=== PATIENT | female | born 1935 | race Caucasian/White ===

== ENCOUNTER → 2017-03-27 | Outpatient (CLI) | payer MEDICARE ==
--- NOTE | 2017-04-01 13:58 | MM ---
Reason for exam: screening (asymptomatic). Last mammogram was performed 1 year and 1 month ago. History: Patient is postmenopausal. Physical Findings: A clinical breast exam by your physician is recommended on an annual basis and results should be correlated with mammographic findings. MG 3D Screening Mammo W/Cad Bilateral CC and MLO view(s) were taken. Prior study comparison: March 07, 2016, bilateral MG screening mammo w CAD. March 02, 2015, bilateral MG screening mammo w CAD. December 09, 2013, bilateral digital screening mammo w/CAD. The breast tissue is heterogeneously dense. This may lower the sensitivity of mammography. Finding: There are typically benign vascular, round calcifications in both breasts. There is no discrete abnormality. ASSESSMENT: Benign, BI-RAD 2 RECOMMENDATION: Routine screening mammogram of both breasts in 1 year.
== END | disposition home or self-care (01) ==
LOC: RADMAMWWP 11:25
PROVIDERS: ATTEND Internal Medicine Geriatric Medicine
DX: Z12.31 Encounter for screening mammogram for malignant neoplasm of breast (principal)
CPT/HCPCS: 77063; G0202

== ENCOUNTER → 2018-04-06 | Outpatient (CLI) | payer MEDICARE ==
--- NOTE | 2018-04-06 16:14 | BD ---
EXAMINATION TYPE: Axial Bone Density DATE OF EXAM: 04/06/2018 COMPARISON: NONE CLINICAL HISTORY: Postmenopausal female. Osteoporosis screening. Height: 63 Weight: 138.0 FRAX RISK QUESTIONS: Alcohol (3 or more units per day): no Family History (Parent hip fracture): no Glucocorticoids (More than 3mos): no (Ex: prednisone, prednisolone, methylprednisolone, dexamethasone, and hydrocortisone). History of Fracture in Adulthood: no Secondary Osteoporosis: 1. Type 1 Diabetes: no 2. Hyperthyroidism: no 3. Menopause before 45: no 4. Malnutrition: no 5. Chronic liver disease: no Rheumatoid Arthritis: no Current Tobacco Use: no RISK FACTORS HISTORY OF: Active: yes Diet low in dairy products/other sources of calcium: yes Postmenopausal woman: age 55 Lost more than 2 inches in height since high school: unsure Frequent falls: no MEDICATIONS: lisinopril, hydralazine, lovastatin, aspirin, vitamins Additional History: EXAM MEASUREMENTS: Bone mineral densitometry was performed using the Panv[employer] System. Bone mineral density as measured about the Lumbar spine is: ----- L1-L4(G/cm2): 1.314 T Score Values are as follows: ----- L2: -0.1 ----- L3: 2.4 ----- L4: 2.8 ----- L1-L4: 1.1 Bone mineral density has: increased 1.1 % since study of: 03.02.2015 Bone mineral density about the R hip (g/cm2): 0.830 Bone mineral density about the L hip (g/cm2): 0.885 T Score values are as follows: -----R Neck: -1.5 -----L Neck: -1.1 -----R Total: -0.2 -----L Total: 0.1 Bone mineral density has: decreased -0.5 % since study of: 03.02.2015 IMPRESSION: Osteopenia (T Score between -2.5 and -1). There is slightly increased risk of fracture and the patient may be considered for treatment. Re-Screen 2-5 years. NOTE: T-SCORE=SD OF THE YOUNG ADULT MEAN.
--- NOTE | 2018-04-07 14:38 | MM ---
Reason for exam: screening (asymptomatic). Last mammogram was performed 1 year ago. History: Patient is postmenopausal. Physical Findings: A clinical breast exam by your physician is recommended on an annual basis and results should be correlated with mammographic findings. MG 3D Screening Mammo W/Cad Bilateral CC and MLO view(s) were taken. Prior study comparison: March 27, 2017, bilateral MG 3d screening mammo w/cad. March 07, 2016, bilateral MG screening mammo w CAD. Finding: There are typically benign vascular calcifications in both breasts. No significant changes in finding since March 27, 2017 and March 07, 2016. ASSESSMENT: Benign, BI-RAD 2 RECOMMENDATION: Routine screening mammogram of both breasts in 1 year.
== END | disposition home or self-care (01) ==
LOC: RADMAMWWP 13:39
PROVIDERS: ATTEND Internal Medicine Geriatric Medicine
DX: Z12.31 Encounter for screening mammogram for malignant neoplasm of breast (principal); M81.0 Age-related osteoporosis without current pathological fracture; M85.80 Other specified disorders of bone density and structure, unspecified site
CPT/HCPCS: 77063; 77067; 77080

== ENCOUNTER → 2020-08-07 | Outpatient (CLI) | payer MEDICARE ==
--- NOTE | 2020-08-08 12:20 | MM ---
Reason for exam: screening (asymptomatic). Last mammogram was performed 1 year and 3 months ago. History: Patient is postmenopausal. Physical Findings: A clinical breast exam by your physician is recommended on an annual basis and results should be correlated with mammographic findings. MG 3D Screening Mammo W/Cad Bilateral CC and MLO view(s) were taken. Prior study comparison: April 22, 2019, bilateral MG screening mammo w CAD. April 06, 2018, bilateral MG 3d screening mammo w/cad. The breast tissue is heterogeneously dense. This may lower the sensitivity of mammography. There are benign appearing round, vascular calcifications bilaterally. There is no discrete abnormality. ASSESSMENT: Benign, BI-RAD 2 RECOMMENDATION: Routine screening mammogram of both breasts in 1 year.
== END | disposition home or self-care (01) ==
LOC: RADMAMWWP 11:11
PROVIDERS: ATTEND Internal Medicine Geriatric Medicine
DX: Z12.31 Encounter for screening mammogram for malignant neoplasm of breast (principal)
CPT/HCPCS: 77063; 77067

== ENCOUNTER 2022-07-09 10:15 | Emergency (ER) | payer MEDICARE ==
[2022-07-09 10:26] VITALS: BP 179/97; RESP 16; TEMP 97.7
[2022-07-09] MEDS ORDERED: SODIUM CHLORIDE 0.9% 500 ML 500 ML IV STA (10:31)
--- NOTE | 2022-07-09 10:36 | ED ---
Weakness HPI - General Chief complaint: Weakness Stated complaint: weakness Time Seen by Provider: 07/09/22 10:27 Source: patient, EMS, RN notes reviewed, old records reviewed Mode of arrival: EMS Limitations: no limitations - History of Present Illness Initial comments: This is an 87-year-old female that is alert to person, presents to the emergency room with complaints of generalized weakness. Patient does have a history of dementia and was diagnosed with coronavirus last week. She denies any nausea vomiting or abdominal pain. States did have a bowel movement today. She denies any chest pain or difficulty in breathing. She does state that she has a productive cough. Denies any fevers. MD Complaint: generalized weakness Location: generalized Severity scale (1-10): 0 Associated Symptoms: denies other symptoms - Related Data Home Medications Medication Instructions Recorded Confirmed Aspirin EC [Ecotrin Low Dose] 81 mg PO HS 07/09/22 07/09/22 Calcium Carbonate/Vitamin D3 1 tab PO BID 07/09/22 07/09/22 [Caltrate 600 Plus D3 20 Mcg (800 Iu)] DULoxetine HCL [Cymbalta] 30 mg PO DAILY 07/09/22 07/09/22 Donepezil [Aricept] 10 mg PO BID 07/09/22 07/09/22 Folic Acid 1 mg PO HS 07/09/22 07/09/22 Lovastatin [Mevacor] 40 mg PO HS 07/09/22 07/09/22 Memantine [Namenda] 10 mg PO HS 07/09/22 07/09/22 Multivitamins, Thera [Multivitamin 1 tab PO DAILY 07/09/22 07/09/22 (formulary)] Ubidecarenone [Co Q-10] 300 mg PO HS 07/09/22 07/09/22 lisinopriL [Zestril] 20 mg PO BID 07/09/22 07/09/22 Allergies Allergy/AdvReac Type Severity Reaction Status Date / Time No Known Allergies Allergy Verified 07/09/22 10:34 Review of Systems ROS Statement: Those systems with pertinent positive or pertinent negative responses have been documented in the HPI. ROS Other: All systems not noted in ROS Statement are negative. General Exam Limitations: no limitations General appearance: alert, in no apparent distress Head exam: Present: atraumatic Eye exam: Present: normal appearance. Absent: scleral icterus, conjunctival injection, periorbital swelling ENT exam: Present: mucous membranes dry. Absent: other Neck exam: Present: full ROM Respiratory exam: Present: decreased breath sounds. Absent: respiratory distress, wheezes, rales, rhonchi, stridor, chest wall tenderness, accessory muscle use Cardiovascular Exam: Present: regular rate GI/Abdominal exam: Present: soft. Absent: distended, tenderness, guarding, rebound, rigid Extremities exam: Present: full ROM, normal capillary refill. Absent: tenderness, pedal edema, joint swelling, calf tenderness Back exam: Absent: tenderness, CVA tenderness (R), CVA tenderness (L), paraspinal tenderness, vertebral tenderness, rash noted Neurological exam: Present: alert Psychiatric exam: Present: normal affect, normal mood Skin exam: Present: warm, dry, normal color. 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 Hemoglobin and hematocrit are stable. Electrolytes are unremarkable. EKG shows sinus rhythm with no acute changes. Troponin is negative. Urinalysis is negative. VSS Patient's symptoms are likely related to coronavirus. She was encouraged to increase her fluid intake, take vitamin C, vitamin D and zinc daily. Return to the emergency room with any concerning symptoms. Case discussed with Dr. Nuno. - Lab Data Result diagrams: 07/09/22 11:18 07/09/22 11:18 Lab Results 07/09/22 07/09/22 07/09/22 Range/Units 11:18 11:18 11:18 WBC 7.2 (3.8-10.6) k/uL RBC 4.76 (3.80-5.40) m/uL Hgb 13.7 (11.4-16.0) gm/dL Hct 42.4 (34.0-46.0) % MCV 89.1 (80.0-100.0) fL MCH 28.7 (25.0-35.0) pg MCHC 32.2 (31.0-37.0) g/dL RDW 13.5 (11.5-15.5) % Plt Count 249 (150-450) k/uL MPV 7.2 Neutrophils % 72 % Lymphocytes % 18 % Monocytes % 6 % Eosinophils % 1 % Basophils % 1 % Neutrophils # 5.2 (1.3-7.7) k/uL Lymphocytes # 1.3 (1.0-4.8) k/uL Monocytes # 0.5 (0-1.0) k/uL Eosinophils # 0.1 (0-0.7) k/uL Basophils # 0.0 (0-0.2) k/uL PT 10.1 (9.0-12.0) sec INR 0.9 (<1.2) APTT 28.9 (22.0-30.0) sec Sodium 138 (137-145) mmol/L Potassium 4.3 (3.5-5.1) mmol/L Chloride 103 (98-107) mmol/L Carbon Dioxide 28 (22-30) mmol/L Anion Gap 7 mmol/L BUN 16 (7-17) mg/dL Creatinine 1.04 (0.52-1.04) mg/dL Est GFR (CKD-EPI)AfAm 56 (>60 ml/min/1.73 sqM) Est GFR (CKD-EPI)NonAf 49 (>60 ml/min/1.73 sqM) Glucose 100 H (74-99) mg/dL Plasma Lactic Acid Sukhjinder (0.7-2.0) mmol/L Calcium 9.1 (8.4-10.2) mg/dL Magnesium 1.8 (1.6-2.3) mg/dL Total Bilirubin 0.3 (0.2-1.3) mg/dL AST 30 (14-36) U/L ALT 15 (4-34) U/L Alkaline Phosphatase 100 (38-126) U/L Troponin I (0.000-0.034) ng/mL Total Protein 5.8 L (6.3-8.2) g/dL Albumin 3.3 L (3.5-5.0) g/dL Urine Color Urine Appearance (Clear) Urine pH (5.0-8.0) Ur Specific [place] (1.001-1.035) Urine Protein (Negative) Urine Glucose (UA) (Negative) Urine Ketones (Negative) Urine Blood (Negative) Urine Nitrite (Negative) Urine Bilirubin (Negative) Urine Urobilinogen (<2.0) mg/dL Ur Leukocyte Esterase (Negative) Coronavirus (PCR) (Not Detectd) 07/09/22 07/09/22 07/09/22 Range/Units 11:18 11:18 11:18 WBC (3.8-10.6) k/uL RBC (3.80-5.40) m/uL Hgb (11.4-16.0) gm/dL Hct (34.0-46.0) % MCV (80.0-100.0) fL MCH (25.0-35.0) pg MCHC (31.0-37.0) g/dL RDW (11.5-15.5) % Plt Count (150-450) k/uL MPV Neutrophils % % Lymphocytes % % Monocytes % % Eosinophils % % Basophils % % Neutrophils # (1.3-7.7) k/uL Lymphocytes # (1.0-4.8) k/uL Monocytes # (0-1.0) k/uL Eosinophils # (0-0.7) k/uL Basophils # (0-0.2) k/uL PT (9.0-12.0) sec INR (<1.2) APTT (22.0-30.0) sec Sodium (137-145) mmol/L Potassium (3.5-5.1) mmol/L Chloride (98-107) mmol/L Carbon Dioxide (22-30) mmol/L Anion Gap mmol/L BUN (7-17) mg/dL Creatinine (0.52-1.04) mg/dL Est GFR (CKD-EPI)AfAm (>60 ml/min/1.73 sqM) Est GFR (CKD-EPI)NonAf (>60 ml/min/1.73 sqM) Glucose (74-99) mg/dL Plasma Lactic Acid Sukhjinder 0.9 (0.7-2.0) mmol/L Calcium (8.4-10.2) mg/dL Magnesium (1.6-2.3) mg/dL Total Bilirubin (0.2-1.3) mg/dL AST (14-36) U/L ALT (4-34) U/L Alkaline Phosphatase (38-126) U/L Troponin I 0.013 (0.000-0.034) ng/mL Total Protein (6.3-8.2) g/dL Albumin (3.5-5.0) g/dL Urine Color Light Yellow Urine Appearance Clear (Clear) Urine pH 7.0 (5.0-8.0) Ur Specific [place] 1.007 (1.001-1.035) Urine Protein Negative (Negative) Urine Glucose (UA) Negative (Negative) Urine Ketones Negative (Negative) Urine Blood Negative (Negative) Urine Nitrite Negative (Negative) Urine Bilirubin Negative (Negative) Urine Urobilinogen <2.0 (<2.0) mg/dL Ur Leukocyte Esterase Negative (Negative) Coronavirus (PCR) (Not Detectd) 07/09/22 Range/Units 11:18 WBC (3.8-10.6) k/uL RBC (3.80-5.40) m/uL Hgb (11.4-16.0) gm/dL Hct (34.0-46.0) % MCV (80.0-100.0) fL MCH (25.0-35.0) pg MCHC (31.0-37.0) g/dL RDW (11.5-15.5) % Plt Count (150-450) k/uL MPV Neutrophils % % Lymphocytes % % Monocytes % % Eosinophils % % Basophils % % Neutrophils # (1.3-7.7) k/uL Lymphocytes # (1.0-4.8) k/uL Monocytes # (0-1.0) k/uL Eosinophils # (0-0.7) k/uL Basophils # (0-0.2) k/uL PT (9.0-12.0) sec INR (<1.2) APTT (22.0-30.0) sec Sodium (137-145) mmol/L Potassium (3.5-5.1) mmol/L Chloride (98-107) mmol/L Carbon Dioxide (22-30) mmol/L Anion Gap mmol/L BUN (7-17) mg/dL Creatinine (0.52-1.04) mg/dL Est GFR (CKD-EPI)AfAm (>60 ml/min/1.73 sqM) Est GFR (CKD-EPI)NonAf (>60 ml/min/1.73 sqM) Glucose (74-99) mg/dL Plasma Lactic Acid Sukhjinder (0.7-2.0) mmol/L Calcium (8.4-10.2) mg/dL Magnesium (1.6-2.3) mg/dL Total Bilirubin (0.2-1.3) mg/dL AST (14-36) U/L ALT (4-34) U/L Alkaline Phosphatase (38-126) U/L Troponin I (0.000-0.034) ng/mL Total Protein (6.3-8.2) g/dL Albumin (3.5-5.0) g/dL Urine Color Urine Appearance (Clear) Urine pH (5.0-8.0) Ur Specific [place] (1.001-1.035) Urine Protein (Negative) Urine Glucose (UA) (Negative) Urine Ketones (Negative) Urine Blood (Negative) Urine Nitrite (Negative) Urine Bilirubin (Negative) Urine Urobilinogen (<2.0) mg/dL Ur Leukocyte Esterase (Negative) Coronavirus (PCR) Detected A (Not Detectd) Disposition Clinical Impression: Weakness, COVID-19 Disposition: HOME SELF-CARE Condition: Good Instructions (If sedation given, give patient instructions): COVID-19 (Coronavirus Disease 2019) (ED), Weakness (ED) Additional Instructions: Increase your fluid intake. Take vitamin C, vitamin D and zinc. Return to the emergency room with worsening or concerning symptoms. Is patient prescribed a controlled substance at d/c from ED?: No Referrals: Nadir Gomez MD [Primary Care Provider] - 1-2 days
[2022-07-09 11:28] LABS: Basophils % (A) 1 %; Eosinophils # (A) 0.1 k/uL (0-0.7); Eosinophils % (A) 1 %; HCT 42.4 % (34.0-46.0); HGB 13.7 gm/dL (11.4-16.0); Lymphocytes # (A) 1.3 k/uL (1.0-4.8); Lymphocytes % (A) 18 %; MCH 28.7 pg (25.0-35.0); MCHC 32.2 g/dL (31.0-37.0); MCV 89.1 fL (80.0-100.0); Mean Platelet Volume 7.2; Monocytes # (A) 0.5 k/uL (0-1.0); Monocytes % (A) 6 %; Neutrophils # (A) 5.2 k/uL (1.3-7.7); Neutrophils % (A) 72 %; Platelet Count 249 k/uL (150-450); RBC 4.76 m/uL (3.80-5.40); RDW 13.5 % (11.5-15.5); WBC 7.2 k/uL (3.8-10.6)
[2022-07-09 11:31] VITALS: PULSE 57
[2022-07-09 11:42] LABS: Albumin 3.3 g/dL (3.5-5.0); Calcium 9.1 mg/dL (8.4-10.2); Magnesium 1.8 mg/dL (1.6-2.3); Potassium 4.3 mmol/L (3.5-5.1); Total Bilirubin 0.3 mg/dL (0.2-1.3); Total Protein 5.8 g/dL (6.3-8.2)
[2022-07-09 11:45] LABS: INR 0.9 (<1.2); Partial Thromboplastin Time 28.9 sec (22.0-30.0); Prothrombin Time 10.1 sec (9.0-12.0)
--- NOTE | 2022-07-09 11:59 | XR ---
EXAMINATION TYPE: XR chest 2V DATE OF EXAM: 07/09/2022 COMPARISON: NONE HISTORY: Weakness. TECHNIQUE: Frontal and lateral views of the chest are obtained. FINDINGS: There is no suspicious focal air space opacity, pleural effusion, or pneumothorax seen. T he cardiac silhouette size is within normal limits with atherosclerotic change in the thoracic aorta. The osseous structures are demineralized. IMPRESSION: No acute pulmonary process.
[2022-07-09 12:50] LABS: Appearance,Urine Clear (Clear); Bilirubin,Urine Negative (Negative); Blood,Urine Negative (Negative); Color,Urine Light Yellow; Glucose,Urine (UA) Negative (Negative); Ketones,Urine Negative (Negative); Leukocyte Esterase,Urine Negative (Negative); Nitrite,Urine Negative (Negative); Protein,Urine Negative (Negative); Specific Gravity,Urine 1.007 (1.001-1.035); Urobilinogen,Urine <2.0 mg/dL (<2.0)
== END 2022-07-09 19:29 | disposition home or self-care (01) ==
LOC: EC 10:15
DX: U07.1 COVID-19 (principal)
CPT/HCPCS: 36415; 71046; 80053; 81003; 83605; 83735; 84484; 85025; 85610; 85730; 87635; 99285

== ENCOUNTER 2023-05-10 08:06 | Emergency (ER) | payer MEDICARE ==
[2023-05-10 08:14] VITALS: PULSE 60; TEMP 98
--- NOTE | 2023-05-10 08:36 | ED ---
General Adult HPI - General Chief complaint: Fall Stated complaint: Fall Time Seen by Provider: 05/10/23 08:20 Source: patient, family (daughter), RN notes reviewed, old records reviewed Mode of arrival: ambulatory Limitations: no limitations - History of Present Illness Initial comments: 88-year-old female, alert and oriented presents with her daughter after she states that she tripped outside falling onto her right side at 4:00 yesterday afternoon. Called her daughter this morning with increased right sided rib and shoulder pain. Denies any other injuries. Did not hit her head or loose consciousness. Daughter states that she does have mild dementia, but does live alone. Also has a history of hypertension and states did take her blood pres sure medicine today. Daughter states that she also takes hydralazine as needed for elevated blood pressure but does not know the dose. -: hour(s) (16) Location: right (ribs / shoulder) Severity scale (1-10): 8 Quality: aching, constant Improves with: immobilization Worsens with: other (palpation) Associated Symptoms: denies other symptoms Treatments Prior to Arrival: other (tylenol 0800) - Related Data Home Medications Medication Instructions Recorded Confirmed Aspirin EC [Ecotrin Low Dose] 81 mg PO HS 07/09/22 05/10/23 Calcium Carbonate/Vitamin D3 1 tab PO BID 07/09/22 05/10/23 [Caltrate 600 Plus D3 20 Mcg (800 Iu)] DULoxetine HCL [Cymbalta] 30 mg PO DAILY 07/09/22 05/10/23 Donepezil [Aricept] 10 mg PO BID 07/09/22 05/10/23 Lovastatin [Mevacor] 40 mg PO HS 07/09/22 05/10/23 Memantine [Namenda] 10 mg PO HS 07/09/22 05/10/23 Multivitamins, Thera [Multivitamin 1 tab PO DAILY 07/09/22 05/10/23 (formulary)] Ubidecarenone [Co Q-10] 300 mg PO HS 07/09/22 05/10/23 lisinopriL [Zestril] 20 mg PO BID 07/09/22 05/10/23 hydrALAZINE HCL [Apresoline] 25 mg PO TID PRN 05/10/23 05/10/23 Allergies Allergy/AdvReac Type Severity Reaction Status Date / Time No Known Allergies Allergy Verified 05/10/23 09:11 Review of Systems ROS Statement: Those systems with pertinent positive or pertinent negative responses have been documented in the HPI. ROS Other: All systems not noted in ROS Statement are negative. Past Medical History Past Medical History: Dementia, Hypertension History of Any Multi-Drug Resistant Organisms: None Reported Past Surgical History: Tubal Ligation Additional Past Surgical History / Comment(s): left retinal detachment Past Psychological History: No Psychological Hx Reported Smoking Status: Former smoker Past Alcohol Use History: None Reported Past Drug Use History: None Reported General Exam Limitations: no limitations General appearance: alert, in no apparent distress Head exam: Present: atraumatic, normocephalic, normal inspection Eye exam: Present: normal appearance. Absent: scleral icterus, conjunctival injection, periorbital swelling Neck exam: Present: full ROM. Absent: tenderness, meningismus Respiratory exam: Absent: respiratory distress, accessory muscle use Cardiovascular Exam: Present: regular rate GI/Abdominal exam: Present: soft Extremities exam: Present: full ROM, normal capillary refill. Absent: tenderness, pedal edema, joint swelling, calf tenderness Right Shoulder Exam: Present: tenderness, tenderness over AC joint. Absent: swelling, abrasion, laceration, ecchymosis, deformity, crepitus, dislocation, erythema Upper Arm exam: Present: full ROM. Absent: tenderness Elbow exam: Present: full ROM. Absent: tenderness Forearm Wrist exam: Present: full ROM. Absent: tenderness Hand Wrist exam: Present: full ROM. Absent: tenderness Neurosensory exam: Present: radial nerve intact, ulnar nerve intact, median nerve intact Vascular: Present: normal capillary refill. Absent: vascular compromise Back exam: Present: other (right sided lateral rib pain, no bruising or errythema, no abrasions). Absent: tenderness, CVA tenderness (R), CVA tenderness (L) Neurological exam: Present: alert, other (shuffling) Psychiatric exam: Present: normal affect, normal mood Skin exam: Present: warm, dry, normal color. Absent: cyanosis, diaphoretic, petechiae, pallor Course Vital Signs 05/10/23 05/10/23 08:09 09:05 Temperature 98 F Pulse Rate 60 Respiratory 18 16 Rate Blood Pressure 208/83 198/90 O2 Sat by Pulse 98 98 Oximetry Medical Decision Making - Medical Decision Making Was pt. sent in by a medical professional or institution (, PA, HOUSING QUALITY STANDARD INSPECTOR, urgent care, hospital, or [facility]...) When possible be specific @ -No Did you speak to anyone other than the patient for history (EMS, parent, family, police, friend...)? What history was obtained from this source @ -Daughter gave medical history Did you review nursing and triage notes (agree or disagree)? Why? @ -I reviewed and agree with nursing and triage notes Were old charts reviewed (outside hosp., previous admission, EMS record, old EKG, old radiological studies, urgent care reports/EKG's, [facility] records)? Report findings @ -No old charts were reviewed Differential Diagnosis (chest pain, altered mental status, abdominal pain women, abdominal pain men, vaginal bleeding, weakness, fever, dyspnea, syncope, headache, dizziness, GI bleed, back pain, seizure, CVA, palpatations, mental health, musculoskeletal)? @ -Rib fracture, clavicle fracture, humeral fracture, dislocation EKG interpreted by me (3pts min.). @ -n/a X-rays interpreted by me (1pt min.). @ -yes X-ray of chest and right ribs interpreted by me show no evidence of fracture, no focal consolidation. X-ray of the right shoulder interpreted by me shows no evidence of fracture or dislocation. CT interpreted by me (1pt min.). @ -None done U/S interpreted by me (1pt. min.). @ -None done What testing was considered but not performed or refused? (CT, X-rays, U/S, labs)? Why? @ -None What meds were considered but not given or refused? Why? @ -None Did you discuss the management of the patient with other professionals (ward alfordfesstameka i.e. , PA, HOUSING QUALITY STANDARD INSPECTOR, lab, RT, psych nurse, social work coordinator, yard manager, teacher, classification officer, case management coordinator)? Give summary @ -No Was smoking cessation discussed for >3mins.? @ -No Was critical care preformed (if so, how long)? @ -No Were there social determinants of health that impacted care today? How? (Homelessness, low income, unemployed, alcoholism, drug addiction, transportation, low edu. Level, literacy, decrease access to med. care, penitentiary, rehab)? @ -No Was there de-escalation of care discussed even if they declined (Discuss DNR or withdrawal of care, Hospice)? DNR status @ -No What co-morbidities impacted this encounter? (DM, HTN, Smoking, COPD, CAD, Cancer, CVA, ARF, Chemo, Hep., AIDS, mental health diagnosis, sleep apnea, morbid obesity)? @ -Hypertension and dementia Was patient admitted / discharged? Hospital course, mention meds given and route, prescriptions, significant lab abnormalities, going to OR and other pertinent info. @ -Discharged 88-year-old female, alert and oriented presents with her daughter after she states that she tripped outside falling onto her right side at 4:00 yesterday afternoon. Called her daughter this morning with increased right sided rib and shoulder pain. Denies any other injuries. Did not hit her head or loose consciousness. Daughter states that she does have mild dementia, but does live alone. Also has a history of hypertension and states did take her blood pressure medicine today. Daughter states that she also takes hydralazine as needed for elevated blood pressure but does not know the dose. On physical exam patient is able to elevate her right arm over her head, negative Apley scratch test. Full range of motion of the right elbow wrist and hand. Pain with palpation over the right lateral ribs. No evidence of bruising, abrasions or erythema. Patient denies any difficulty breathing. She states that she did not hit her head. Atraumatic. No neck pain. Patient offered pain medication and declined, daughter states did give her Tylenol just prior to arrival X-ray of chest and right ribs show no evidence of fracture, no focal consolidation. Radiologist interpretation no acute osseous pathology. X-ray of the right shoulder interpreted by me shows no evidence of fracture or dislocation. Radiologist interpretation no acute osseous pathology, type I AC j oint injury, mild degenerative changes of the right shoulder. Patient was given a sling to be used as needed for right shoulder pain. Instructed to follow-up with Dr. Mcneill her primary care doctor this week. Take her hydralazine when she gets home today for elevated blood pressure and discuss elevated blood pressure with her primary care doctor. Patient daughter agreeable to this plan of care. Case discussed with Dr. Nuno. Undiagnosed new problem with uncertain prognosis? @ -No Drug Therapy requiring intensive monitoring for toxicity (Heparin, Nitro, Insulin, Cardizem)? @ -No Were any procedures done? @ -No Diagnosis/symptom? @ -right shoulder pain, right rib pain, fall Acute, or Chronic, or Acute on Chronic? @ -Acute Uncomplicated (without systemic symptoms) or Complicated (systemic symptoms)? @ -Uncomplicated Side effects of treatment? @ -No Exacerbation, Progression, or Severe Exacerbation? @ -No Poses a threat to life or bodily function? How? (Chest pain, USA, MS, pneumonia, PE, COPD, DKA, ARF, appy, cholecystitis, CVA, Diverticulitis, Homicidal, Suici jose ramon, threat to staff... and all critical care pts) @ -No Disposition Clinical Impression: Fall, Shoulder pain, right, Rib pain on right side Disposition: HOME SELF-CARE Condition: Good Instructions (If sedation given, give patient instructions): How to Use a Sling (ED), Fall Prevention for Older Adults (ED), Shoulder Pain (ED) Additional Instructions: Tylenol as needed for pain. Can also use topical voltaran for pain relief. Wear sling to the right arm for shoulder pain as needed. Follow-up with the primary care doctor next week and discuss your elevated blood pressure. Is patient prescribed a controlled substance at d/c from ED?: No Referrals: Nadir Gomez MD [Primary Care Provider] - 1-2 days Time of Disposition: 09:22
--- NOTE | 2023-05-10 08:55 | XR ---
EXAMINATION TYPE: XR ribs RT w pa chest xray DATE OF EXAM: 05/10/2023 8:51 AM INDICATION: Patient age:Female; 88 years old; Reason for study: fall right side rib pain; PHH. COMPARISON: Chest radiograph 07/09/2022 TECHNIQUE: Frontal and oblique views of the right ribs with frontal chest radiograph. FINDINGS: The ribs have a normal appearance. No evidence of fracture. Overall, the lungs are clear. Chronic senescent parenchyma changes. Atelectatic calcification of the aorta. The cardiac silhouette is normal in size. The remaining osseous structures are intact. IMPRESSION: No acute osseous pathology.
--- NOTE | 2023-05-10 08:57 | XR ---
EXAMINATION TYPE: XR shoulder complete RT DATE OF EXAM: 05/10/2023 8:50 AM INDICATION: Patient age:Female; 88 years old; Reason for study: fall; COMPARISON: No direct comparisons TECHNIQUE: The eighth shoulder was examined in AP, internally rotated and scapular Y projections. . FINDINGS: No acute fracture. No shoulder dislocation. AC joint widening with capsular hypertrophy overlying sof t tissue edema. Mild degenerative changes of the right shoulder. Visualized portion of the chest is u nremarkable. IMPRESSION: 1. No acute osseous pathology. 2. Type I AC joint injury. 3. Mild degenerative changes of the right shoulder.
[2023-05-10 09:06] VITALS: BP 198/90; RESP 16
== END 2023-05-10 09:39 | disposition home or self-care (01) ==
LOC: EC 08:06
DX: M25.511 Pain in right shoulder (principal); R07.81 Pleurodynia; I10 Essential (primary) hypertension; Z87.891 Personal history of nicotine dependence; Z79.82 Long term (current) use of aspirin; Z79.899 Other long term (current) drug therapy; W01.0XXA Fall on same level from slipping, tripping and stumbling without subsequent striking against object, initial encounter
CPT/HCPCS: 99284

== ENCOUNTER 2023-05-20 11:23 | Observation (INO) | payer MEDICARE ==
[2023-05-20] MEDS ORDERED: SODIUM CHLORIDE 0.9% 1,000 ML IV ONE (11:34)
--- NOTE | 2023-05-20 12:03 | ED ---
General Adult HPI - General Chief complaint: Weakness Stated complaint: Weakness Time Seen by Provider: 05/20/23 11:25 Source: EMS, RN notes reviewed Mode of arrival: EMS Limitations: no limitations - History of Present Illness Initial comments: 88-year-old female with a past medical history significant for hypertension presents to the emergency department with a chief complaint of generalized weakness. Family reports that the patient had a fall approximately 2 weeks ago she fell on her right shoulder. She reports twisting weakness ever since. Family reports that the patient will wake up in the morning with energy and able to have breakfast. They report shortly after she will have to take a long nap. Denies any acute trauma or injury. Denies any known fevers. Patient is at her baseline. She is A and O3. She was recently started on hydralazine or blood pressure management. - Related Data Home Medications Medication Instructions Recorded Confirmed Aspirin EC [Ecotrin Low Dose] 81 mg PO HS 07/09/22 05/20/23 DULoxetine HCL [Cymbalta] 30 mg PO DAILY 07/09/22 05/20/23 Donepezil [Aricept] 10 mg PO HS 07/09/22 05/20/23 Lovastatin [Mevacor] 40 mg PO HS 07/09/22 05/20/23 Memantine [Namenda] 10 mg PO HS 07/09/22 05/20/23 Multivitamins, Thera [Multivitamin 1 tab PO HS 07/09/22 05/20/23 (formulary)] lisinopriL [Zestril] 20 mg PO BID 07/09/22 05/20/23 hydrALAZINE HCL [Apresoline] 25 - 50 mg PO TID PRN 05/10/23 05/20/23 Cetirizine HCl [Zyrtec] 10 mg PO DAILY 05/20/23 05/20/23 Ubidecarenone [Coenzyme Q10] 200 mg PO HS 05/20/23 05/20/23 Allergies Allergy/AdvReac Type Severity Reaction Status Date / Time No Known Allergies Allergy Verified 05/20/23 12:51 Review of Systems ROS Statement: Those systems with pertinent positive or pertinent negative responses have been documented in the HPI. ROS Other: All systems not noted in ROS Statement are negative. Past Medical History Past Medical History: Dementia, Hypertension History of Any Multi-Drug Resistant Organisms: None Reported Past Surgical History: Tubal Ligation Additional Past Surgical History / Comment(s): left retinal detachment Past Psychological History: No Psychological Hx Reported Smoking Status: Former smoker Past Alcohol Use History: None Reported Past Drug Use History: None Reported General Exam - General Exam Comments Initial Comments: General: Alert, in no acute distress Head: atraumatic normocephalic. Eyes PERRL, EOMI intact, mucous membranes moist Respiratory: Lungs clear to auscultation bilaterally Cardiovascular: Rate regular rate and rhythm Abdominal: Soft without guarding or rebound Extremities: Normal inspection with full range of motion and normal capillary refill Neuroogic: alert and oriented 3, CN II-XII intact, able to ambulate with steady gait Skin: warm dry and intact with normal color Limitations: no limitations Course Vital Signs 05/20/23 05/20/23 05/20/23 11:27 12:00 16:00 Temperature 98.9 F 98.0 F Pulse Rate 66 65 94 Respiratory 16 13 18 Rate Blood Pressure 166/79 154/83 O2 Sat by Pulse 99 97 Oximetry 05/20/23 17:35 Temperature 98.0 F Pulse Rate 61 Respiratory 18 Rate Blood Pressure 176/92 O2 Sat by Pulse 98 Oximetry - Reevaluation(s) Reevaluation #1: 05/20/23 14:44 Patient reevaluated. Patient able to ambulate from cart to bedside commode. Reevaluation #2: 05/20/23 15:[address] Kiser who agrees and accepts the patient for admission for further observation EKG Findings - EKG Comments: EKG Findings:: I interpreted the following: EKG performed at 11:46 rate 62 bpm normal sinus rhythm with sinus arrhythmia. DC interval 154, QRS duration 87, QT/QTc 380/386 Medical Decision Making - Medical Decision Making Was pt. sent in by a medical professional or institution (, PA, CHILDCARE ADMINISTRATOR, urgent care, hospital, or residential...) When possible be specific @ -[No] Did you speak to anyone other than the patient for history (EMS, parent, family, police, friend...)? What history was obtained from this source @ -[No] Did you review nursing and triage notes (agree or disagree)? Why? @ -[I reviewed and agree with nursing and triage notes] Were old charts reviewed (outside hosp., previous admission, EMS record, old EKG, old radiological studies, urgent care reports/EKG's, residential records)? Report findings @ -[No old charts were reviewed] Differential Diagnosis (chest pain, altered mental status, abdominal pain women, abdominal pain men, vaginal bleeding, weakness, fever, dyspnea, syncope, headache, dizziness, GI bleed, back pain, seizure, CVA, palpatations, mental health, musculoskeletal)? @ -[not applicable] EKG interpreted by me (3pts min.). @ -Negative for any evidence of intra-pleural process X-rays interpreted by me (1pt min.). @ -[None done] CT interpreted by me (1pt min.). @ -[None done] U/S interpreted by me (1pt. min.). @ -[None done] What testing was considered but not performed or refused? (CT, X-rays, U/S, labs)? Why? @ -[None] What meds were considered but not given or refused? Why? @ -[None] Did you discuss the management of the patient with other professionals (professionals i.e. , PA, CHILDCARE ADMINISTRATOR, lab, RT, psych nurse, rn social work, scallop shucker, teacher, chief security and safety officer, case management rn)? Give summary @ -[No] Was smoking cessation discussed for >3mins.? @ -[No] Was critical care preformed (if so, how long)? @ -[No] Were there social determinants of health that impacted care today? How? (Homelessness, low income, unemployed, alcoholism, drug addiction, transportation, low edu. Level, literacy, decrease access to med. care, m[facility], rehab)? @ -[No] Was there de-escalation of care discussed even if they declined (Discuss DNR or withdrawal of care, Hospice)? DNR status @ -[No] What co-morbidities impacted this encounter? (DM, HTN, Smoking, COPD, CAD, Cancer, CVA, ARF, Chemo, Hep., AIDS, mental health diagnosis, sleep apnea, morbid obesity)? @ -[None] Was patient admitted / discharged? Hospital course, mention meds given and route, prescriptions, significant lab abnormalities, going to OR and other pertinent info. @ -Admission. This is a 42-year-old female with no significant past medical history who presents to the emergency department with syncope. Patient had a thorough history and physical exam performed on the emergency department. Heart rate regular rate and rhythm, lungs clear to auscultation bilaterally, abdomen soft nontender. There are no focal neuro deficits noted upon exam. Patient unable to ambulate with steady gait however is able to move Extremities freely. Patient had lab work and imaging which revealed was negative. Including 2 negative troponins Discussed the results in detail with the patient verbalized understanding and all questions were addressed. She was given Zofran and 1 L of IV fluids was symptomatically relief in the emergency department She'll be discharged home in stable condition with strict return precautions discussed. He was given a prescription for Zofran. Patient discharged in stable condition with recommended close follow-up with PCP in 1-2 days.. Case discussed with Dr. Jang [facility] who agrees with plan of care Undiagnosed new problem with uncertain prognosis? @ -[No] Drug Therapy requiring intensive monitoring for toxicity (Heparin, Nitro, Insulin, Cardizem)? @ -[No] Were any procedures done? @ -[No] Diagnosis/symptom? @ -Weakness Acute, or Chronic, or Acute on Chronic? @ -Acute on Chronic Uncomplicated (without systemic symptoms) or Complicated (systemic symptoms)? @ -Complicated Side effects of treatment? @ -[No] Exacerbation, Progression, or Severe Exacerbation? @ -[No] Poses a threat to life or bodily function? How? (Chest pain, USA, NC, pneumonia, PE, COPD, DKA, ARF, appy, cholecystitis, CVA, Diverticulitis, Homicidal, Suicidal, threat to staff... and all critical care pts) @ -High likelihood, increased risk of fall - Lab Data Result diagrams: 05/20/23 11:55 05/20/23 11:55 Lab Results 05/20/23 05/20/23 05/20/23 Range/Units 11:34 11:34 11:55 WBC 7.8 (3.8-10.6) k/uL RBC 4.73 (3.80-5.40) m/uL Hgb 14.3 (11.4-16.0) gm/dL Hct 43.7 (34.0-46.0) % MCV 92.5 (80.0-100.0) fL MCH 30.3 (25.0-35.0) pg MCHC 32.8 (31.0-37.0) g/dL RDW 13.5 (11.5-15.5) % Plt Count 301 (150-450) k/uL MPV 8.1 Neutrophils % 66 % Lymphocytes % 23 % Monocytes % 7 % Eosinophils % 2 % Basophils % 0 % Neutrophils # 5.2 (1.3-7.7) k/uL Lymphocytes # 1.8 (1.0-4.8) k/uL Monocytes # 0.5 (0-1.0) k/uL Eosinophils # 0.1 (0-0.7) k/uL Basophils # 0.0 (0-0.2) k/uL PT (9.0-12.0) sec INR (<1.2) APTT (22.0-30.0) sec Sodium (137-145) mmol/L Potassium (3.5-5.1) mmol/L Chloride (98-107) mmol/L Carbon Dioxide (22-30) mmol/L Anion Gap mmol/L BUN (7-17) mg/dL Creatinine (0.52-1.04) mg/dL Est GFR (CKD-EPI)AfAm (>60 ml/min/1.73 sqM) Est GFR (CKD-EPI)NonAf (>60 ml/min/1.73 sqM) Glucose (74-99) mg/dL POC Glucose (mg/dL) (70-110) mg/dL POC Glu Neon Electrician ID Calcium (8.4-10.2) mg/dL Magnesium (1.6-2.3) mg/dL Total Bilirubin (0.2-1.3) mg/dL AST (14-36) U/L ALT (4-34) U/L Alkaline Phosphatase (38-126) U/L Troponin I (0.000-0.034) ng/mL Total Protein (6.3-8.2) g/dL Albumin (3.5-5.0) g/dL Urine Color Light Yellow Urine Appearance Clear (Clear) Urine pH 7.5 (5.0-8.0) Ur Specific [place] 1.011 (1.001-1.035) Urine Protein Negative (Negative) Urine Glucose (UA) Negative (Negative) Urine Ketones Negative (Negative) Urine Blood Negative (Negative) Urine Nitrite Negative (Negative) Urine Bilirubin Negative (Negative) Urine Urobilinogen <2.0 (<2.0) mg/dL Ur Leukocyte Esterase Negative (Negative) Influenza Type A (PCR) Not Detected (Not Detectd) Influenza Type B (PCR) Not Detected (Not Detectd) RSV (PCR) Not Detected (Not Detectd) SARS-CoV-2 (PCR) Not Detected (Not Detectd) 05/20/23 05/20/23 05/20/23 Range/Units 11:55 11:55 11:55 WBC (3.8-10.6) k/uL RBC (3.80-5.40) m/uL Hgb (11.4-16.0) gm/dL Hct (34.0-46.0) % MCV (80.0-100.0) fL MCH (25.0-35.0) pg MCHC (31.0-37.0) g/dL RDW (11.5-15.5) % Plt Count (150-450) k/uL MPV Neutrophils % % Lymphocytes % % Monocytes % % Eosinophils % % Basophils % % Neutrophils # (1.3-7.7) k/uL Lymphocytes # (1.0-4.8) k/uL Monocytes # (0-1.0) k/uL Eosinophils # (0-0.7) k/uL Basophils # (0-0.2) k/uL PT 9.5 (9.0-12.0) sec INR 0.9 (<1.2) APTT 26.8 (22.0-30.0) sec Sodium 136 L (137-145) mmol/L Potassium 4.6 (3.5-5.1) mmol/L Chloride 105 (98-107) mmol/L Carbon Dioxide 24 (22-30) mmol/L Anion Gap 7 mmol/L BUN 25 H (7-17) mg/dL Creatinine 0.86 (0.52-1.04) mg/dL Est GFR (CKD-EPI)AfAm 70 (>60 ml/min/1.73 sqM) Est GFR (CKD-EPI)NonAf 61 (>60 ml/min/1.73 sqM) Glucose 100 H (74-99) mg/dL POC Glucose (mg/dL) (70-110) mg/dL POC Glu Neon Electrician ID Calcium 9.0 (8.4-10.2) mg/dL Magnesium 2.0 (1.6-2.3) mg/dL Total Bilirubin 0.6 (0.2-1.3) mg/dL AST 39 H (14-36) U/L ALT 24 (4-34) U/L Alkaline Phosphatase 89 (38-126) U/L Troponin I <0.012 (0.000-0.034) ng/mL Total Protein 6.2 L (6.3-8.2) g/dL Albumin 3.6 (3.5-5.0) g/dL Urine Color Urine Appearance (Clear) Urine pH (5.0-8.0) Ur Specific [place] (1.001-1.035) Urine Protein (Negative) Urine Glucose (UA) (Negative) Urine Ketones (Negative) Urine Blood (Negative) Urine Nitrite (Negative) Urine Bilirubin (Negative) Urine Urobilinogen (<2.0) mg/dL Ur Leukocyte Esterase (Negative) Influenza Type A (PCR) (Not Detectd) Influenza Type B (PCR) (Not Detectd) RSV (PCR) (Not Detectd) SARS-CoV-2 (PCR) (Not Detectd) 05/20/23 05/20/23 Range/Units 11:57 14:43 WBC (3.8-10.6) k/uL RBC (3.80-5.40) m/uL Hgb (11.4-16.0) gm/dL Hct (34.0-46.0) % MCV (80.0-100.0) fL MCH (25.0-35.0) pg MCHC (31.0-37.0) g/dL RDW (11.5-15.5) % Plt Count (150-450) k/uL MPV Neutrophils % % Lymphocytes % % Monocytes % % Eosinophils % % Basophils % % Neutrophils # (1.3-7.7) k/uL Lymphocytes # (1.0-4.8) k/uL Monocytes # (0-1.0) k/uL Eosinophils # (0-0.7) k/uL Basophils # (0-0.2) k/uL PT (9.0-12.0) sec INR (<1.2) APTT (22.0-30.0) sec Sodium (137-145) mmol/L Potassium (3.5-5.1) mmol/L Chloride (98-107) mmol/L Carbon Dioxide (22-30) mmol/L Anion Gap mmol/L BUN (7-17) mg/dL Creatinine (0.52-1.04) mg/dL Est GFR (CKD-EPI)AfAm (>60 ml/min/1.73 sqM) Est GFR (CKD-EPI)NonAf (>60 ml/min/1.73 sqM) Glucose (74-99) mg/dL POC Glucose (mg/dL) 90 (70-110) mg/dL POC Glu Neon Electrician Dakotah Hayes Calcium (8.4-10.2) mg/dL Magnesium (1.6-2.3) mg/dL Total Bilirubin (0.2-1.3) mg/dL AST (14-36) U/L ALT (4-34) U/L Alkaline Phosphatase (38-126) U/L Troponin I <0.012 (0.000-0.034) ng/mL Total Protein (6.3-8.2) g/dL Albumin (3.5-5.0) g/dL Urine Color Urine Appearance (Clear) Urine pH (5.0-8.0) Ur Specific [place] (1.001-1.035) Urine Protein (Negative) Urine Glucose (UA) (Negative) Urine Ketones (Negative) Urine Blood (Negative) Urine Nitrite (Negative) Urine Bilirubin (Negative) Urine Urobilinogen (<2.0) mg/dL Ur Leukocyte Esterase (Negative) Influenza Type A (PCR) (Not Detectd) Influenza Type B (PCR) (Not Detectd) RSV (PCR) (Not Detectd) SARS-CoV-2 (PCR) (Not Detectd) Disposition Clinical Impression: Weakness Disposition: ADMITTED IP TO THIS HOSP Condition: Stable Is patient prescribed a controlled substance at d/c from ED?: No Time of Disposition: 15:56
[2023-05-20 12:06] LABS: Glucose,Whole Blood 90 mg/dL (70-110)
[2023-05-20 12:13] LABS: Basophils % (A) 0 %; Eosinophils # (A) 0.1 k/uL (0-0.7); Eosinophils % (A) 2 %; HCT 43.7 % (34.0-46.0); HGB 14.3 gm/dL (11.4-16.0); Lymphocytes # (A) 1.8 k/uL (1.0-4.8); Lymphocytes % (A) 23 %; MCH 30.3 pg (25.0-35.0); MCHC 32.8 g/dL (31.0-37.0); MCV 92.5 fL (80.0-100.0); Mean Platelet Volume 8.1; Monocytes # (A) 0.5 k/uL (0-1.0); Monocytes % (A) 7 %; Neutrophils # (A) 5.2 k/uL (1.3-7.7); Neutrophils % (A) 66 %; Platelet Count 301 k/uL (150-450); RBC 4.73 m/uL (3.80-5.40); RDW 13.5 % (11.5-15.5); WBC 7.8 k/uL (3.8-10.6)
[2023-05-20 12:25] LABS: ALT 24 U/L (4-34); African American GFR (CKD) 70 (>60 ml/min/1.73 sqM); Albumin 3.6 g/dL (3.5-5.0); Anion Gap 7 mmol/L; Blood Urea Nitrogen 25 mg/dL (7-17); Carbon Dioxide 24 mmol/L (22-30); Chloride 105 mmol/L (98-107); Glucose 100 mg/dL (74-99); Non-African American GFR(CKD) 61 (>60 ml/min/1.73 sqM); Sodium 136 mmol/L (137-145); Total Bilirubin 0.6 mg/dL (0.2-1.3); Total Protein 6.2 g/dL (6.3-8.2)
[2023-05-20 12:26] LABS: AST 39 U/L (14-36); Alkaline Phosphatase 89 U/L (38-126); Potassium 4.6 mmol/L (3.5-5.1)
[2023-05-20 12:27] LABS: INR 0.9 (<1.2); Partial Thromboplastin Time 26.8 sec (22.0-30.0); Prothrombin Time 9.5 sec (9.0-12.0)
[2023-05-20 12:33] LABS: Appearance,Urine Clear (Clear); Bilirubin,Urine Negative (Negative); Blood,Urine Negative (Negative); Color,Urine Light Yellow; Glucose,Urine (UA) Negative (Negative); Ketones,Urine Negative (Negative); Leukocyte Esterase,Urine Negative (Negative); Nitrite,Urine Negative (Negative); PH, Urine 7.5 (5.0-8.0); Protein,Urine Negative (Negative); Specific Gravity,Urine 1.011 (1.001-1.035); Urobilinogen,Urine <2.0 mg/dL (<2.0)
--- NOTE | 2023-05-20 13:00 | XR ---
EXAMINATION TYPE: XR chest 2V DATE OF EXAM: 05/20/2023 COMPARISON: 05/10/2023 HISTORY: 88-year-old female with weakness TECHNIQUE: AP and lateral views FINDINGS: Heart and lungs are normal in size. Ectatic/tortuous thoracic aorta. Some mild activity left basilar posterior basilar opacity. No pleural effusion. Hyperinflation. IMPRESSION: 1. Hyperinflation could reflect depth of inspiration or underlying emphysema. Clinically correlate. 2. Some patchy left basilar and posterior basilar atelectasis versus early infiltrate.
[2023-05-20] MEDS ORDERED: SODIUM CHLORIDE 0.9% 500 ML 500 ML IV ONE (14:43)
[2023-05-20] MEDS ORDERED: NALOXONE 0.4 MG/ML 1 ML VIAL IV PRN (15:56)
[2023-05-20] MEDS ORDERED: ACETAMINOPHEN TAB 325 MG TAB PO PRN (15:56)
[2023-05-20] MEDS: SODIUM CHLORIDE 0.9% 1,000 ML IV SCH (16:13)
[2023-05-20] MEDS ORDERED: ATORVASTATIN 10 MG TAB PO SCH (21:00)
[2023-05-20] MEDS ORDERED: hydrALAZINE HCL 50 MG TAB PO SCH (21:00)
[2023-05-20] MEDS ORDERED: MULTIVITAMINS, THERA 1 EACH TAB PO SCH (21:00)
[2023-05-20] MEDS ORDERED: MEMANTINE 10 MG TAB PO SCH (21:00)
[2023-05-20] MEDS ORDERED: ASPIRIN 81 MG PO SCH (21:00)
[2023-05-20] MEDS ORDERED: DONEPEZIL 10 MG TAB PO SCH (21:00)
[2023-05-20] MEDS ORDERED: NON FORMULARY DRUG (Ubidecarenone [Coenzyme Q10] 200 MG Capsule) PO SCH (21:00)
[2023-05-20] MEDS: lisinopriL 20 MG TAB PO SCH (21:04)
[2023-05-21] MEDS: SODIUM CHLORIDE 0.9% 1,000 ML IV SCH (05:24)
[2023-05-21 07:34] VITALS: RESP 16
[2023-05-21] MEDS: lisinopriL 20 MG TAB PO SCH (08:17)
[2023-05-21] MEDS ORDERED: amLODIPine 5 MG TAB PO SCH (09:00)
[2023-05-21] MEDS ORDERED: DULoxetine HCL 30 MG CAPSULE.DR PO SCH (09:00)
[2023-05-21] MEDS ORDERED: HEPARIN SODIUM,PORCINE/PF 5,000 UNIT/0.5 ML SYRINGE SQ SCH (09:00)
[2023-05-21 10:15] LABS: Blood Urea Nitrogen 18.1 mg/dL (9.0-27.0); Calcium 8.6 mg/dL (8.7-10.3); Carbon Dioxide 21.6 mmol/L (21.6-31.8); Chloride 108 mmol/L (96-109); Glucose 91 mg/dL (70-110); Potassium 4.6 mmol/L (3.5-5.5); Sodium 142 mmol/L (135-145)
--- NOTE | 2023-05-21 13:46 | P.HPIM ---
History of Present Illness H&P Date: 05/20/23 Chief Complaint: Generalized Weakness Patient is a 88-year-old female with a known history of hypertension, dementia and prior history of smoking was brought to the hospital by her family due to complaints of generalized weakness. Patient's daughter is at bedside. Apparent ly his daughter patient fell on her right side on her shoulder about a week ago and since then she has not been eating very well and unable to get out of bed. Patient states that she tripped over and fell. Denied any palpitations or dizziness. Patient is having generalized weakness and her blood pressure is also fluctuating at home. Patient is somewhat poor historian. Denied any trauma to the head. She has been very lethargic this morning and sleeping all day. Usually she wakes up in the morning with ALLERGY and able to have breakfast. Patient was brought to ER. Patient does not have any fever or chills. She was started on hydralazine for blood pressure management recently. Chest x-ray showed hyperinflation could reflect depth of his underlying emphysema. Clinically correlate. Some patchy left basilar and posterior basilar atelectasis versus early infiltrate. Laboratory data showed WBC 7.8 hemoglobin 14.3 and platelets 301 Sodium 136 potassium 4.0) 105 bicarb is 24 BUN 20 Creatinine 0.86 and blood sugar is 100. EKG showed sinus rhythm with sinus arrhythmia. Urinalysis is negative for infection. Influenza A A, B, RSV and covid 19 not detected. Past Medical History Past Medical History: Dementia, Hypertension History of Any Multi-Drug Resistant Organisms: None Reported Past Surgical History: Tubal Ligation Additional Past Surgical History / Comment(s): left retinal detachment Past Anesthesia/Blood Transfusion Reactions: No Reported Reaction Past Psychological History: No Psychological Hx Reported Smoking Status: Former smoker Past Alcohol Use History: None Reported Past Drug Use History: None Reported Medications and Allergies Home Medications Medication Instructions Recorded Confirmed Type Aspirin EC [Ecotrin Low Dose] 81 mg PO HS 07/09/22 05/20/23 History DULoxetine HCL [Cymbalta] 30 mg PO DAILY 07/09/22 05/20/23 History Donepezil [Aricept] 10 mg PO HS 07/09/22 05/20/23 History Lovastatin [Mevacor] 40 mg PO HS 07/09/22 05/20/23 History Memantine [Namenda] 10 mg PO HS 07/09/22 05/20/23 History Multivitamins, Thera [Multivitamin 1 tab PO HS 07/09/22 05/20/23 History (formulary)] lisinopriL [Zestril] 20 mg PO BID 07/09/22 05/20/23 History hydrALAZINE HCL [Apresoline] 25 - 50 mg PO TID PRN 05/10/23 05/20/23 History Cetirizine HCl [Zyrtec] 10 mg PO DAILY 05/20/23 05/20/23 History Ubidecarenone [Coenzyme Q10] 200 mg PO HS 05/20/23 05/20/23 History Allergies Allergy/AdvReac Type Severity Reaction Status Date / Time No Known Allergies Allergy Verified 05/20/23 12:51 Physical Exam Vitals: Vital Signs Temp Pulse Pulse Resp BP BP Pulse Ox 05/20/23 20:32 95 17 184/94 97 05/20/23 20:00 98 F 05/20/23 17:35 98.0 F 61 18 176/92 98 05/20/23 16:00 98.0 F 94 18 154/83 05/20/23 12:00 65 13 97 05/20/23 11:27 98.9 F 66 16 166/79 99 Intake and Output 05/20/23 05/20/23 05/20/23 06:59 14:59 22:59 Other: Weight 54.431 kg 54.431 kg Results CBC & Chem 7: 05/20/23 11:55 05/21/23 05:36 Labs: Abnormal Lab Results - Last 24 Hours (Table) 05/20/23 Range/Units 11:55 Sodium 136 L (137-145) mmol/L BUN 25 H (7-17) mg/dL Glucose 100 H (74-99) mg/dL AST 39 H (14-36) U/L Total Protein 6.2 L (6.3-8.2) g/dL Thrombosis Risk Factor Assmnt - Choose All That Apply Each Risk Factor Represents 3 Points: Age 75 years or older Other congenital or acquired thrombophilia - If yes, enter type in comment: No Thrombosis Risk Factor Assessment Total Risk Factor Score: 3 Thrombosis Risk Factor Assessment Level: Moderate Risk
[2023-05-21 15:21] VITALS: BP 146/100; PULSE 69; TEMP 98.1
== END 2023-05-21 15:31 | disposition home or self-care (01) ==
LOC: EC 11:23 → 6NMEDSUR 16:10
PROVIDERS: ADMIT Internal Medicine; ATTEND Internal Medicine
DX: R53.1 Weakness (principal); I10 Essential (primary) hypertension; F03.90 Unspecified dementia, unspecified severity, without behavioral disturbance, psychotic disturbance, mood disturbance, and anxiety; Z20.822 Contact with and (suspected) exposure to COVID-19; Z87.891 Personal history of nicotine dependence; Z79.82 Long term (current) use of aspirin; Z79.899 Other long term (current) drug therapy
CPT/HCPCS: 96361 ×2; 96372; 96360; 99285; 36415; 93005; 82747; 80053; 80048; 84443; 82607; 83735; 84484; 85025; 85610; 85730; 81003; 87636; 71046; G0378 ×2; J1644

== ENCOUNTER 2024-11-11 12:24 | Emergency (ER) | payer MEDICARE ==
--- NOTE | 2024-11-11 13:22 | ED ---
SOB HPI - General Chief Complaint: Shortness of Breath Stated Complaint: DR aguilar pneumonia Time Seen by Provider: 11/11/24 12:46 Source: patient, family, EMS, RN notes reviewed Mode of arrival: EMS Limitations: altered mental status - History of Present Illness Initial Comments: This is an 89-year-old female who presents to the emergency department for w eakness and respiratory symptoms. She saw her PCP last week regarding respiratory symptoms and was diagnosed with pneumonia. She was started on doxycycline and steroids. Family states that she has not fully recovered. She does have some shortness of breath and also reports increasing weakness. Patient has a history of dementia and is a rather poor historian. Family is unsure if she has had much coughing. They do note that she is not eating as much as usual. MD Complaint: shortness of breath - Related Data Home Medications Medication Instructions Recorded Confirmed Aspirin EC [Ecotrin Low Dose] 81 mg PO HS 07/09/22 05/20/23 DULoxetine HCL [Cymbalta] 30 mg PO DAILY 07/09/22 05/20/23 Donepezil [Aricept] 10 mg PO HS 07/09/22 05/20/23 Lovastatin [Mevacor] 40 mg PO HS 07/09/22 05/20/23 Memantine [Namenda] 10 mg PO HS 07/09/22 05/20/23 Multivitamins, Thera [Multivitamin 1 tab PO HS 07/09/22 05/20/23 (formulary)] lisinopriL [Zestril] 20 mg PO BID 07/09/22 05/20/23 Ubidecarenone [Coenzyme Q10] 200 mg PO HS 05/20/23 05/20/23 Previous Rx's Medication Instructions Recorded amLODIPine [Norvasc] 5 mg PO DAILY #30 tab 05/21/23 Nirmatrelvir/Ritonavir [Paxlovid 1 pack PO BID 5 Days #20 tab 11/11/24 150-100 mg Dose Pack] Allergies Allergy/AdvReac Type Severity Reaction Status Date / Time No Known Allergies Allergy Verified 05/20/23 12:51 Review of Systems ROS Statement: Those systems with pertinent positive or pertinent negative responses have been documented in the HPI. ROS Other: All systems not noted in ROS Statement are negative. Past Medical History Past Medical History: Dementia, Hypertension History of Any Multi-Drug Resistant Organisms: None Reported Past Surgical History: Tubal Ligation Additional Past Surgical History / Comment(s): left retinal detachment Past Anesthesia/Blood Transfusion Reactions: No Reported Reaction Past Psychological History: No Psychological Hx Reported Smoking Status: Former smoker Past Alcohol Use History: None Reported Past Drug Use History: None Reported General Exam Limitations: altered mental status General appearance: alert, in no apparent distress Head exam: Present: atraumatic, normocephalic, normal inspection Respiratory exam: Present: normal lung sounds bilaterally. Absent: respiratory distress, wheezes, rales, rhonchi, stridor Cardiovascular Exam: Present: regular rate, normal rhythm, normal heart sounds. Absent: systolic murmur, diastolic murmur, rubs, gallop, clicks Neurological exam: Present: alert Psychiatric exam: Present: normal affect, normal mood Skin exam: Present: warm, dry, intact, normal color. Absent: rash Course Vital Signs 11/11/24 11/11/24 11/11/24 12:30 12:45 12:49 Temperature 97.7 F Pulse Rate 68 Respiratory 14 20 Rate Blood Pressure 104/75 O2 Sat by Pulse 93 L 89 L Oximetry 11/11/24 11/11/24 11/11/24 12:50 14:04 15:03 Temperature 98.0 F Pulse Rate 67 67 Respiratory 22 20 Rate Blood Pressure 124/76 117/78 O2 Sat by Pulse 94 L 95 94 L Oximetry 11/11/24 11/11/24 11/11/24 15:17 15:38 15:47 Temperature Pulse Rate 77 69 Respiratory 24 14 Rate Blood Pressure O2 Sat by Pulse 98 98 93 L Oximetry 11/11/24 11/11/24 15:59 16:10 Temperature 97.6 F Pulse Rate 68 68 Respiratory 16 20 Rate Blood Pressure 127/75 O2 Sat by Pulse 97 98 Oximetry Medical Decision Making - Medical Decision Making This is an 89-year-old female who presents to the emergency department for shortness of breath and weakness. Was pt. sent in by a medical professional or institution? @ -No Did you speak to anyone other than the patient for history? @ -Her daughter provided the majority of the history. Did you review nursing and triage notes? @ -Yes, and I agree, it is accurate with regards to the patient's symptoms. Were old charts reviewed? @ -No Differential Diagnosis? @ -Differential Dyspnea: Coronary syndrome, arrhythmia, tamponade, asthma, COPD, pulmonary embolism, pneumonia, pneumothorax, pulmonary effusion, anaphylaxis, diabetic ketoacidosis, flailed chest, pulmonary contusion, diaphragmatic rupture, anemia, neuromuscular, this is not meant to be an all-inclusive list. EKG interpreted by me (3pts min.)? @ -EKG interpreted by me demonstrating the following: Sinus rhythm. Ventricular rate 67 bpm, PA interval 141 ms, QRS duration 75 ms, QTc 369 ms. X-rays interpreted by me (1pt min.)? @ -Chest x-ray obtained, my interpretation identifies no localized consolidations or infiltrates. CT interpreted by me (1pt min.)? @ -Not obtained U/S interpreted by me (1pt. min.)? @ -Not obtained What testing was considered but not performed? (CT, X-rays, U/S, labs)? Why? @ -None What meds were considered but not given? Why? @ -None Did you discuss the management of the patient with other professionals? @ -No Did you reconcile home meds? @ -No Was smoking cessation discussed for >3mins.? @ -No Was critical care preformed (if so, how long)? @ -No Were there social determinants of health that impacted care today? How? (Homelessness, low income, unemployed, alcoholism, drug addiction, transporta tion, low edu. Level, literacy, decrease access to med. care, shelter, rehab)? @ -No Was there de-escalation of care discussed even if they declined? (Discuss DNR or withdrawal of care, Hospice)? @ -No What co-morbidities impacted this encounter? (DM, HTN, Smoking, COPD, CAD, Cancer, CVA, Hep., AIDS, mental health diagnosis, sleep apnea, morbid obesity)? @ -Dementia Was patient admitted / discharged? @ -Discharged. Lab work demonstrates mild leukocytosis and signs of dehydration. Patient positive for COVID-19. Urinalysis negative for signs of infection. Chest x-ray reveals no acute process. She was given a total of 1 L of IV fluids. She did start to feel improved afterwards. She was maintaining a dequate oxygen saturation and overall did not feel like she was in much of any distress. Given that she is feeling okay and vital signs are stable, advised that we do not need to keep her in the hospital, as this will just expose her to additional illness. Patient and daughter are comfortable with her being discharged home and having follow-up with her PCP. Paxlovid was prescribed for the COVID. Patient discharged home in stable condition. Case discussed with ED attending Dr. Mosquera. Return precautions reviewed in depth, the patient is instructed to return to the emergency department with any new, worsening, or concerning symptoms. Patient and her daughter verbalized understanding. Undiagnosed new problem with uncertain prognosis? @ -None Drug Therapy requiring intensive monitoring for toxicity (Heparin, Nitro, Insulin, Cardizem)? @ -None Were any procedures done? @ -None Diagnosis/symptom? @ -COVID-19 Acute, or Chronic, or Acute on Chronic? @ -Acute Uncomplicated (without systemic symptoms) or Complicated (systemic symptoms)? @ -Uncomplicated Side effects of treatment? @ -None Exacerbation, Progression, or Severe Exacerbation] @ -Not applicable Poses a threat to life or bodily function? @ -Unlikely - Lab Data Result diagrams: 11/11/24 13:00 11/11/24 13:00 Lab Results 11/11/24 11/11/24 11/11/24 Range/Units 13:00 13:00 13:00 WBC 14.0 H (3.8-10.6) k/uL RBC 4.85 (3.80-5.40) m/uL Hgb 14.4 (11.4-16.0) gm/dL Hct 45.1 (34.0-46.0) % MCV 92.9 (80.0-100.0) fL MCH 29.7 (25.0-35.0) pg MCHC 31.9 (31.0-37.0) g/dL RDW 13.0 (11.5-15.5) % Plt Count 389 (150-450) k/uL MPV 8.0 Neutrophils % 74 % Lymphocytes % 18 % Monocytes % 5 % Eosinophils % 1 % Basophils % 1 % Neutrophils # 10.4 H (1.3-7.7) k/uL Lymphocytes # 2.6 (1.0-4.8) k/uL Monocytes # 0.6 (0-1.0) k/uL Eosinophils # 0.1 (0-0.7) k/uL Basophils # 0.1 (0-0.2) k/uL PT 11.0 (10.0-12.5) sec INR 1.0 (<1.2) APTT 22.7 (22.0-30.0) sec Sodium 140 (137-145) mmol/L Potassium 5.0 (3.5-5.1) mmol/L Chloride 108 H (98-107) mmol/L Carbon Dioxide 21 L (22-30) mmol/L Anion Gap 11 mmol/L BUN 37 H (7-17) mg/dL Creatinine 1.31 H (0.52-1.04) mg/dL Est GFR (CKD-EPI)AfAm 42 (>60 ml/min/1.73 sqM) Est GFR (CKD-EPI)NonAf 36 (>60 ml/min/1.73 sqM) Glucose 117 H (74-99) mg/dL Plasma Lactic Acid Sukhjinder (0.7-2.0) mmol/L Calcium 9.1 (8.4-10.2) mg/dL Magnesium 2.0 (1.6-2.3) mg/dL Total Bilirubin 0.7 (0.2-1.3) mg/dL AST 32 (14-36) U/L ALT 17 (4-34) U/L Alkaline Phosphatase 53 (38-126) U/L Troponin I (0.000-0.034) ng/mL NT-Pro-B Natriuret Pep 306 pg/mL Total Protein 5.8 L (6.3-8.2) g/dL Albumin 3.2 L (3.5-5.0) g/dL Urine Color Urine Appearance (Clear) Urine pH (5.0-8.0) Ur Specific [place] (1.001-1.035) Urine Protein (Negative) Urine Glucose (UA) (Negative) Urine Ketones (Negative) Urine Blood (Negative) Urine Nitrite (Negative) Urine Bilirubin (Negative) Urine Urobilinogen (<2.0) mg/dL Ur Leukocyte Esterase (Negative) Influenza Type A (PCR) (Not Detectd) Influenza Type B (PCR) (Not Detectd) RSV (PCR) (Not Detectd) SARS-CoV-2 (PCR) (Not Detectd) 11/11/24 11/11/24 11/11/24 Range/Units 13:00 13:00 14:04 WBC (3.8-10.6) k/uL RBC (3.80-5.40) m/uL Hgb (11.4-16.0) gm/dL Hct (34.0-46.0) % MCV (80.0-100.0) fL MCH (25.0-35.0) pg MCHC (31.0-37.0) g/dL RDW (11.5-15.5) % Plt Count (150-450) k/uL MPV Neutrophils % % Lymphocytes % % Monocytes % % Eosinophils % % Basophils % % Neutrophils # (1.3-7.7) k/uL Lymphocytes # (1.0-4.8) k/uL Monocytes # (0-1.0) k/uL Eosinophils # (0-0.7) k/uL Basophils # (0-0.2) k/uL PT (10.0-12.5) sec INR (<1.2) APTT (22.0-30.0) sec Sodium (137-145) mmol/L Potassium (3.5-5.1) mmol/L Chloride (98-107) mmol/L Carbon Dioxide (22-30) mmol/L Anion Gap mmol/L BUN (7-17) mg/dL Creatinine (0.52-1.04) mg/dL Est GFR (CKD-EPI)AfAm (>60 ml/min/1.73 sqM) Est GFR (CKD-EPI)NonAf (>60 ml/min/1.73 sqM) Glucose (74-99) mg/dL Plasma Lactic Acid Sukhjinder 1.9 (0.7-2.0) mmol/L Calcium (8.4-10.2) mg/dL Magnesium (1.6-2.3) mg/dL Total Bilirubin (0.2-1.3) mg/dL AST (14-36) U/L ALT (4-34) U/L Alkaline Phosphatase (38-126) U/L Troponin I <0.012 (0.000-0.034) ng/mL NT-Pro-B Natriuret Pep pg/mL Total Protein (6.3-8.2) g/dL Albumin (3.5-5.0) g/dL Urine Color Urine Appearance (Clear) Urine pH (5.0-8.0) Ur Specific [place] (1.001-1.035) Urine Protein (Negative) Urine Glucose (UA) (Negative) Urine Ketones (Negative) Urine Blood (Negative) Urine Nitrite (Negative) Urine Bilirubin (Negative) Urine Urobilinogen (<2.0) mg/dL Ur Leukocyte Esterase (Negative) Influenza Type A (PCR) Not Detected (Not Detectd) Influenza Type B (PCR) Not Detected (Not Detectd) RSV (PCR) Not Detected (Not Detectd) SARS-CoV-2 (PCR) Detected A (Not Detectd) 11/11/24 Range/Units 15:14 WBC (3.8-10.6) k/uL RBC (3.80-5.40) m/uL Hgb (11.4-16.0) gm/dL Hct (34.0-46.0) % MCV (80.0-100.0) fL MCH (25.0-35.0) pg MCHC (31.0-37.0) g/dL RDW (11.5-15.5) % Plt Count (150-450) k/uL MPV Neutrophils % % Lymphocytes % % Monocytes % % Eosinophils % % Basophils % % Neutrophils # (1.3-7.7) k/uL Lymphocytes # (1.0-4.8) k/uL Monocytes # (0-1.0) k/uL Eosinophils # (0-0.7) k/uL Basophils # (0-0.2) k/uL PT (10.0-12.5) sec INR (<1.2) APTT (22.0-30.0) sec Sodium (137-145) mmol/L Potassium (3.5-5.1) mmol/L Chloride (98-107) mmol/L Carbon Dioxide (22-30) mmol/L Anion Gap mmol/L BUN (7-17) mg/dL Creatinine (0.52-1.04) mg/dL Est GFR (CKD-EPI)AfAm (>60 ml/min/1.73 sqM) Est GFR (CKD-EPI)NonAf (>60 ml/min/1.73 sqM) Glucose (74-99) mg/dL Plasma Lactic Acid Sukhjinder (0.7-2.0) mmol/L Calcium (8.4-10.2) mg/dL Magnesium (1.6-2.3) mg/dL Total Bilirubin (0.2-1.3) mg/dL AST (14-36) U/L ALT (4-34) U/L Alkaline Phosphatase (38-126) U/L Troponin I (0.000-0.034) ng/mL NT-Pro-B Natriuret Pep pg/mL Total Protein (6.3-8.2) g/dL Albumin (3.5-5.0) g/dL Urine Color Yellow Urine Appearance Clear (Clear) Urine pH 6.0 (5.0-8.0) Ur Specific [place] 1.021 (1.001-1.035) Urine Protein Trace H (Negative) Urine Glucose (UA) Negative (Negative) Urine Ketones Negative (Negative) Urine Blood Negative (Negative) Urine Nitrite Negative (Negative) Urine Bilirubin Negative (Negative) Urine Urobilinogen <2.0 (<2.0) mg/dL Ur Leukocyte Esterase Negative (Negative) Influenza Type A (PCR) (Not Detectd) Influenza Type B (PCR) (Not Detectd) RSV (PCR) (Not Detectd) SARS-CoV-2 (PCR) (Not Detectd) - Radiology Data Radiology results: report reviewed, image reviewed Disposition Clinical Impression: COVID-19 Disposition: HOME SELF-CARE Instructions (If sedation given, give patient instructions): COVID-19 (Coronavirus Disease 2019) (ED) Additional Instructions: Return to the emergency department with any new, worsening, or concerning symptoms. Take the Paxlovid as prescribed for 5 days. Follow up with your primary care provider in 1-2 days. Prescriptions: Nirmatrelvir/Ritonavir [Paxlovid 150-100 mg Dose Pack] 1 pack PO BID 5 Days #20 tab Is patient prescribed a controlled substance at d/c from ED?: No Referrals: None,Stated [REFERRING] - 1-2 days Time of Disposition: 15:58
[2024-11-11 13:31] LABS: Basophils # (A) 0.1 k/uL (0-0.2); Basophils % (A) 1 %; Eosinophils # (A) 0.1 k/uL (0-0.7); Eosinophils % (A) 1 %; HCT 45.1 % (34.0-46.0); HGB 14.4 gm/dL (11.4-16.0); Lymphocytes # (A) 2.6 k/uL (1.0-4.8); Lymphocytes % (A) 18 %; MCH 29.7 pg (25.0-35.0); MCHC 31.9 g/dL (31.0-37.0); MCV 92.9 fL (80.0-100.0); Monocytes # (A) 0.6 k/uL (0-1.0); Monocytes % (A) 5 %; Neutrophils # (A) 10.4 k/uL (1.3-7.7); Neutrophils % (A) 74 %; Platelet Count 389 k/uL (150-450); RBC 4.85 m/uL (3.80-5.40)
[2024-11-11 13:41] LABS: Partial Thromboplastin Time 22.7 sec (22.0-30.0)
[2024-11-11 13:50] LABS: ALT 17 U/L (4-34); African American GFR (CKD) 42 (>60 ml/min/1.73 sqM); Albumin 3.2 g/dL (3.5-5.0); Anion Gap 11 mmol/L; Blood Urea Nitrogen 37 mg/dL (7-17); Calcium 9.1 mg/dL (8.4-10.2); Carbon Dioxide 21 mmol/L (22-30); Chloride 108 mmol/L (98-107); Glucose 117 mg/dL (74-99); Non-African American GFR(CKD) 36 (>60 ml/min/1.73 sqM); Sodium 140 mmol/L (137-145); Total Bilirubin 0.7 mg/dL (0.2-1.3); Total Protein 5.8 g/dL (6.3-8.2)
[2024-11-11 13:51] LABS: AST 32 U/L (14-36); Alkaline Phosphatase 53 U/L (38-126)
[2024-11-11 13:54] LABS: NT-Pro-B-Type Natriuretic Pept 306 pg/mL
[2024-11-11] MEDS: SODIUM CHLORIDE 0.9% 500 ML 500 ML IV STA ×2 (14:02→15:05)
--- NOTE | 2024-11-11 14:07 | XR ---
EXAMINATION TYPE: XR chest 2V DATE OF EXAM: 11/11/2024 2:00 PM COMPARISON: CXR from 05/20/2023. CLINICAL INDICATION: Female, 89 years old with history of difficulty breathing, TECHNIQUE: Frontal and lateral views of the chest are obtained. FINDINGS: There is no suspicious focal air space opacity, pleural effusion, or pneumothorax seen. T he cardiac silhouette size is within normal limits with atherosclerotic change in thoracic aorta rede monstrated. The osseous structures are intact. IMPRESSION: No new acute pulmonary process. [facility], , 11/11/2024 2:05 PM
[2024-11-11 15:22] LABS: Appearance,Urine Clear (Clear); Bilirubin,Urine Negative (Negative); Blood,Urine Negative (Negative); Color,Urine Yellow; Glucose,Urine (UA) Negative (Negative); Ketones,Urine Negative (Negative); Leukocyte Esterase,Urine Negative (Negative); Nitrite,Urine Negative (Negative); Protein,Urine Trace (Negative); Specific Gravity,Urine 1.021 (1.001-1.035); Urobilinogen,Urine <2.0 mg/dL (<2.0)
[2024-11-11 16:00] VITALS: PULSE 68
[2024-11-11 16:11] VITALS: BP 127/75; RESP 20; TEMP 97.6
== END 2024-11-11 16:10 | disposition home or self-care (01) ==
LOC: EC 12:24
DX: U07.1 COVID-19 (principal); F03.90 Unspecified dementia, unspecified severity, without behavioral disturbance, psychotic disturbance, mood disturbance, and anxiety; Z87.891 Personal history of nicotine dependence
CPT/HCPCS: 36415; 71046; 80053; 81003; 83605; 83735; 83880; 84484; 85025; 85610; 85730; 87636; 93005; 96360; 96361; 99285

== ENCOUNTER 2024-11-13 21:30 | Observation (INO) | payer MEDICARE ==
--- NOTE | 2024-11-13 21:41 | ED ---
Chest Pain HPI - General Chief Complaint: Chest Pain Stated Complaint: Chest Pain Time Seen by Provider: 11/13/24 21:39 Source: patient, EMS, RN notes reviewed, old records reviewed, Caregiver Mode of arrival: EMS Limitations: altered mental status, physical limitation - History of Present Illness Initial Comments: This is an 89-year-old female of a poor story and from dementia. Patient is 89 years old with a recent diagnosis of coronavirus possible pneumonia. Patient coming with chest pain today brought in by EMS history obtained by EMS MD Complaint: chest pain -: days(s) Pain Location: substernal Pain Radiation: none Severity: moderate Severity scale (1-10): 4 Quality: tightness Consistency: constant Improves With: nothing Worsens With: nothing Context: recent illness Anginal Symptoms: dyspnea Other Symptoms: palpitations Treatments Prior to Arrival: none - Related Data Home Medications Medication Instructions Recorded Confirmed Aspirin EC [Ecotrin Low Dose] 81 mg PO HS 07/09/22 11/14/24 Lovastatin [Mevacor] 40 mg PO DAILY 07/09/22 11/14/24 Memantine [Namenda] 10 mg PO DAILY 07/09/22 11/14/24 Megestrol [Megace] 40 mg PO DAILY 11/14/24 11/14/24 Previous Rx's Medication Instructions Recorded Acetaminophen Tab [Tylenol] 650 mg PO Q6HR PRN tab 11/16/24 Heparin Sodium,Porcine (1 ml) 5,000 unit SQ Q12HR each 11/16/24 [Heparin Sodium] Pantoprazole [Protonix] 40 mg PO BID #60 tab 11/16/24 Sennosides [Senokot] 8.6 mg PO DAILY tab 11/16/24 Allergies Allergy/AdvReac Type Severity Reaction Status Date / Time No Known Allergies Allergy Verified 11/14/24 11:16 Review of Systems ROS Statement: Those systems with pertinent positive or pertinent negative responses have been documented in the HPI. ROS Other: All systems not noted in ROS Statement are negative. EKG Findings - EKG Comments: EKG Findings:: EKG is sinus 81 TX 146 QRS 75 QTc 389 - EKG Results: EKG: interpreted by ERMD Past Medical History Past Medical History: Dementia, Hypertension History of Any Multi-Drug Resistant Organisms: None Reported Past Surgical History: Tubal Ligation Additional Past Surgical History / Comment(s): left retinal detachment Past Anesthesia/Blood Transfusion Reactions: No Reported Reaction Past Psychological History: No Psychological Hx Reported Smoking Status: Former smoker Past Alcohol Use History: None Reported Past Drug Use History: None Reported - Past Family History Mother Family Medical History: Unable to Obtain General Exam General appearance: alert, in no apparent distress Head exam: Present: atraumatic, normocephalic, normal inspection Eye exam: Present: normal appearance, PERRL, EOMI. Absent: scleral icterus, conjunctival injection, periorbital swelling ENT exam: Present: normal exam, mucous membranes moist Neck exam: Present: normal inspection. Absent: tenderness, meningismus, lymphadenopathy Respiratory exam: Present: normal lung sounds bilaterally. Absent: respiratory distress, wheezes, rales, rhonchi, stridor Cardiovascular Exam: Present: regular rate, normal rhythm, normal heart sounds. Absent: systolic murmur, diastolic murmur, rubs, gallop, clicks GI/Abdominal exam: Present: soft, normal bowel sounds. Absent: distended, tenderness, guarding, rebound, rigid Extremities exam: Present: normal inspection, full ROM, normal capillary refill. Absent: tenderness, pedal edema, joint swelling, calf tenderness Back exam: Present: normal inspection Neurological exam: Present: alert, oriented X3, CN II-XII intact Psychiatric exam: Present: normal affect, normal mood Skin exam: Present: warm, dry, intact, normal color. Absent: rash Course Vital Signs 11/13/24 11/14/24 21:31 02:10 Temperature 97.7 F 98.4 F Pulse Rate 84 74 Respiratory 18 20 Rate Blood Pressure 123/71 100/73 O2 Sat by Pulse 98 97 Oximetry - Reevaluation(s) Reevaluation #1: 11/13/24 21:53 Records reviewed Reevaluation #2: 11/14/24 01:45 Symptoms unchanged Reevaluation #3: 11/14/24 01:45 Informed of results questions answered Reevaluation #4: Was pt. sent in by a medical professional or institution (, PA, KITCHEN STEWARD, urgent care, hospital, or assisted...) When possible be specific @ -no Did you speak to anyone other than the patient for history (EMS, parent, family, police, friend...)? What history was obtained from this source @ -no Did you review nursing and triage notes (agree or disagree)? Why? @ -agree Are old charts reviewed (outside hosp., previous admission, EMS record, old EKG, old radiological studies, urgent care reports/EKG's, assisted records)? Report findings @ -yes Differential Diagnosis (chest pain, altered mental status, abdominal pain women, abdominal pain men, vaginal bleeding, weakness, fever, dyspnea, syncope, hea dache, dizziness, GI bleed, back pain, seizure, CVA, palpatations, mental health, musculoskeletal)? @ -prior EKG interpreted by me (3pts min.). @ -yes X-rays interpreted by me (1pt min.). @ -yes negative for acute disease CT interpreted by me (1pt min.). @ -yes negative for acute disease U/S interpreted by me (1pt. min.). @ -no What testing was considered but not performed or refused? (CT, X-rays, U/S, labs)? Why? @ -none What meds were considered but not given or refused? Why? @ -none Did you discuss the management of the patient with other professionals (professionals i.e. , PA, KITCHEN STEWARD, lab, RT, psych nurse, social media manager, purchaser, teacher, mortgage loan officer, clinical case manager)? Give summary @ -no Was smoking cessation discussed for >3mins.? @ -no Was critical care preformed (if so, how long)? @ -no Were there social determinants of health that impacted care today? How? (Homelessness, low income, unemployed, alcoholism, drug addiction, transportation, low edu. Level, literacy, decrease access to med. care, detention, rehab)? @ -none Was there de-escalation of care discussed even if they declined (Discuss DNR or withdrawal of care, Hospice)? DNR status @ -no What co-morbidities impacted this encounter? (DM, HTN, Smoking, COPD, CAD, Cancer, CVA, ARF, Chemo, Hep., AIDS, mental health diagnosis, sleep apnea, morbid obesity)? @ -none Was patient admitted / discharged? Hospital course, mention meds given and route, prescriptions, significant lab abnormalities, going to OR and other pertinent info. @ - 89 Female to the ER for evaluation with recent diagnosis of coronavirus presents today for evaluation of weakness found to have dehydration chest pain found to have some esophageal reflux. Patient will be admitted for n.p.o. and fluid resuscitation Admitted coronavirus weakness dehydration Undiagnosed new problem with uncertain prognosis? @ -no Drug Therapy requiring intensive monitoring for toxicity (Heparin, Nitro, Insulin, Cardizem)? @ -no Were any procedures done? @ -no Diagnosis/symptom? @ - Acute, or Chronic, or Acute on Chronic? @ -Acute Uncomplicated (without systemic symptoms) or Complicated (systemic symptoms)? @ -Complicated Side effects of treatment? @ -no Exacerbation, Progression, or Severe Exacerbation? @ -exacerbation Poses a threat to life or bodily function? How? (Chest pain, [place], [place], pneumonia, PE, COPD, DKA, ARF, appy, cholecystitis, CVA, Diverticulitis, Homicidal, Suicidal, threat to staff... and all critical care pts) @ -yes extremes of age Reevaluation #5: Differential Chest Pain: Stable Angina, Unstable Angina, STEMI, NSTEMI Aortic Dissection, Pneumothorax, Musculoskeletal, Esophageal Spasm GERD, Cholecystitis, Pancreatitis, Zoster, this is not meant to be an all-inclusive list. - Consultations Consultation #1: With EM who agrees to admit this patient Chest Pain MDM - MDM 89 Female to the ER for evaluation with recent diagnosis of coronavirus presents today for evaluation of weakness found to have dehydration chest pain found to have some esophageal reflux. Patient will be admitted for n.p.o. and fluid resuscitation Disposition Clinical Impression: Weakness, COVID-19, Dehydration Disposition: ADMITTED IP TO THIS HOSP Condition: Fair Is patient prescribed a controlled substance at d/c from ED?: No Time of Disposition: 01:00
[2024-11-13] MEDS: KETOROLAC 15 MG/ML 1 ML VIAL IVP STA (22:17)
[2024-11-13] MEDS: MORPHINE SULFATE 2 MG/ML SYRINGE IVP STA (22:19)
[2024-11-13] MEDS: SODIUM CHLORIDE 0.9% 500 ML 500 ML IV STA (22:19)
[2024-11-13 22:40] LABS: Basophils % (A) 0 %; Eosinophils # (A) 0.1 k/uL (0-0.7); Eosinophils % (A) 1 %; HCT 40.7 % (34.0-46.0); HGB 12.9 gm/dL (11.4-16.0); Lymphocytes # (A) 3.2 k/uL (1.0-4.8); Lymphocytes % (A) 21 %; MCH 29.5 pg (25.0-35.0); MCHC 31.6 g/dL (31.0-37.0); MCV 93.2 fL (80.0-100.0); Mean Platelet Volume 7.8; Monocytes # (A) 0.8 k/uL (0-1.0); Monocytes % (A) 6 %; Neutrophils % (A) 71 %; Platelet Count 386 k/uL (150-450); RBC 4.36 m/uL (3.80-5.40); RDW 12.9 % (11.5-15.5); WBC 15.4 k/uL (3.8-10.6)
[2024-11-13 22:52] LABS: ALT 13 U/L (4-34); AST 23 U/L (14-36); African American GFR (CKD) 44 (>60 ml/min/1.73 sqM); Albumin 2.9 g/dL (3.5-5.0); Alkaline Phosphatase 61 U/L (38-126); Anion Gap 11 mmol/L; Blood Urea Nitrogen 26 mg/dL (7-17); Calcium 8.7 mg/dL (8.4-10.2); Carbon Dioxide 20 mmol/L (22-30); Chloride 110 mmol/L (98-107); Glucose 105 mg/dL (74-99); Lipase 132 U/L (23-300); Magnesium 1.9 mg/dL (1.6-2.3); Non-African American GFR(CKD) 38 (>60 ml/min/1.73 sqM); Potassium 4.2 mmol/L (3.5-5.1); Sodium 141 mmol/L (137-145); Total Bilirubin 0.6 mg/dL (0.2-1.3); Total Protein 5.1 g/dL (6.3-8.2)
[2024-11-13 22:54] LABS: Partial Thromboplastin Time 22.1 sec (22.0-30.0); Prothrombin Time 10.7 sec (10.0-12.5)
[2024-11-13 23:01] LABS: NT-Pro-B-Type Natriuretic Pept 382 pg/mL
--- NOTE | 2024-11-14 01:02 | XR ---
EXAM: XR Chest, 2 Views CLINICAL HISTORY: Chest pain. TECHNIQUE: Frontal and lateral views of the chest. COMPARISON: Chest 2 views dated 11/11/2024 FINDINGS: Lungs: Unremarkable. No consolidation. The pulmonary vasculature demonstrates no significant radiographic abnormality. Pleural space: Unremarkable. No pneumothorax. No large pleural effusion. Heart: The cardiac silhouette is stable in appearance. Mediastinum: The mediastinal contours are unremarkable. No tracheal deviation. Bones/joints: Unremarkable. No acute fracture. Vasculature: The aorta is somewhat elongated and tortuous but is stable in appearance. IMPRESSION: No acute cardiopulmonary process or significant alteration from the prior examination.
--- NOTE | 2024-11-14 01:17 | CT ---
EXAM: CT Angiography Chest With Intravenous Contrast CLINICAL HISTORY: Chest pain TECHNIQUE: Axial computed tomographic angiography images of the chest with intravenous contrast. CTDI is 20.7 mGy and DLP is 292.7 mGy-cm. This CT exam was performed using one or more of the following dose reduction techniques: automated exposure control, adjustment of the mA and/or kV according to patient size, and/or use of iterative reconstruction technique. MIP reconstructed images were created and reviewed. COMPARISON: No relevant prior studies available. FINDINGS: Pulmonary arteries: No evidence for pulmonary embolism. Aorta: There is mild to moderate distention of the proximal to mid thoracic esophagus from the aortic arch distally with retained oral contents. Ectasia of the ascending aorta, with the mid ascending aorta measuring 4.2 cm in transaxial diameter. The aortic arch and descending aorta are more normal in caliber. No definite dissection or acute periaortic abnormality. Lungs: Subsegmental presumed atelectatic changes in the posterior right lower lobe. No lobar consolidation. Pleural space: Unremarkable. No significant effusion. No pneumothorax. Heart: The cardiac chambers are normal in size. Prominent proximal LAD calcification. Mediastinum: Marked concentric mucosal thickening of the distal thoracic esophagus, most prominent immediately cranial to the hiatal hernia with the single wall thickness measuring approximately 12 mm. Questionable minimal paraesophageal fat stranding. Bones/joints: No acute fracture. No dislocation. Soft tissues: Unremarkable. Lymph nodes: Unremarkable. No enlarged lymph nodes. Liver: There is a cyst in the anterior aspect of the right lobe of the liver, predominantly in segment 4 measuring 8.9 x 11.9 x 10 cm. Evaluation of the internal architecture is limited given predominant unenhanced status of the liver. IMPRESSION: 1. No evidence for pulmonary embolism. 2. Marked concentric mucosal thickening of the distal thoracic esophagus, most prominent immediately cranial to the hiatal hernia with the single wall thickness measuring approximately 12 mm. Questionable minimal paraesophageal fat stranding. Findings are suspicious for inflammatory infectious esophagitis. 3. There is mild to moderate distention of the proximal to mid thoracic esophagus from the aortic arch distally with retained oral contents. 4. Ectasia of the ascending aorta, with the mid ascending aorta measuring 4.2 cm in transaxial diameter. The aortic arch and descending aorta are more normal in caliber. No definite dissection or acute periaortic abnormality. 5. There is a cyst in the anterior aspect of the right lobe of the liver, predominantly in segment 4 measuring 8.9 x 11.9 x 10 cm. Evaluation of the internal architecture is limited given predominant unenhanced status of the liver.
[2024-11-14] MEDS ORDERED: NALOXONE 0.4 MG/ML 1 ML VIAL IV PRN (01:43)
[2024-11-14] MEDS ORDERED: ONDANSETRON 4 MG/2 ML VIAL IVP PRN (01:43)
[2024-11-14] MEDS ORDERED: ACETAMINOPHEN TAB 325 MG TAB PO PRN (01:43)
[2024-11-14] MEDS: DEXTROSE 5%-0.45% NACL 1,000 ML IV ONE (02:13)
[2024-11-14] MEDS: MORPHINE SULFATE 4 MG/ML SYRINGE IVP STA (02:15)
[2024-11-14] MEDS: PANTOPRAZOLE 40 MG/10 ML VIAL IV SCH (08:39)
--- NOTE | 2024-11-14 14:39 | P.HPIM ---
History of Present Illness This is a pleasant 89 years old female with past medical history of multiple medical problems She was recently diagnosed with COVID infection She presents because of chest pain, described as substernal chest pain I met with the patient with the son at bedside, patient looks poor historian. She was not sure about her presentation. She refers her chest pain but looks like it is okay now not bothering her much either no chest pain or very mild chest pain. She denies dyspnea. No coughing She has chronic nasal obstruction percent that does not require treatment when offered No reports of abdominal pain vomiting or diarrhea. No dysuria or urgency. Per son she voided once No new headache dizziness weakness or numbness At baseline she walks little bit in her room Patient is hemodynamically stable and afebrile Labs showing mild leukocytosis and creatinine 1.6 which is close to baseline. Rest of CBC, BMP, LFT, INR and troponin are negative D-dimer is 1.1 CTA of the chest is negative for PE but there is distal esophageal thickening could be inflammatory versus infectious. Associated with right liver cyst proBNP is 382 Review of Systems Review of systems CONSTITUTIONAL: No fever, no malaise, no fatigue. HEENT: No recent visual problems or hearing problems. Denied any sore throat. CARDIOVASCULAR: No orthopnea, PND, no palpitations, no syncope. PULMONARY: No shortness of breath, no cough, no hemoptysis. GASTROINTESTINAL: No diarrhea, no nausea, no vomiting, no abdominal pain. Normoactive bowel sounds. NEUROLOGICAL: No headaches, no weakness, no numbness. HEMATOLOGICAL: Denies any bleeding or petechiae. GENITOURINARY: Denies any burning micturition, frequency, or urgency. MUSCULOSKELETAL/RHEUMATOLOGICAL: Denies any joint pain, swelling, or any muscle pain. ENDOCRINE: Denies any polyuria or polydipsia. Past Medical History Past Medical History: Dementia, Hyperlipidemia, Hypertension, Pneumonia History of Any Multi-Drug Resistant Organisms: None Reported Past Surgical History: Tubal Ligation Additional Past Surgical History / Comment(s): left retinal detachment Past Anesthesia/Blood Transfusion Reactions: No Reported Reaction Past Psychological History: No Psychological Hx Reported Smoking Status: Former smoker Past Alcohol Use History: None Reported Past Drug Use History: None Reported - Past Family History Mother Family Medical History: Unable to Obtain Medications and Allergies Home Medications Medication Instructions Recorded Confirmed Type Aspirin EC [Ecotrin Low Dose] 81 mg PO HS 07/09/22 11/14/24 History Lovastatin [Mevacor] 40 mg PO DAILY 07/09/22 11/14/24 History Memantine [Namenda] 10 mg PO DAILY 07/09/22 11/14/24 History lisinopriL [Zestril] 20 mg PO BID 07/09/22 11/14/24 History amLODIPine [Norvasc] 5 mg PO DAILY #30 tab 05/21/23 11/14/24 Rx Megestrol [Megace] 40 mg PO DAILY 11/14/24 11/14/24 History hydrALAZINE HCL [Apresoline] 25 mg PO TID PRN 11/14/24 11/14/24 History Allergies Allergy/AdvReac Type Severity Reaction Status Date / Time No Known Allergies Allergy Verified 11/14/24 11:16 Physical Exam Vitals: Vital Signs Temp Pulse Pulse Resp BP BP Pulse Ox 11/14/24 07:10 97.4 F L 65 18 101/63 96 11/14/24 02:49 97.6 F 71 20 116/81 99 11/14/24 02:10 98.4 F 74 20 100/73 97 11/13/24 21:31 97.7 F 84 18 123/71 98 Intake and Output 11/13/24 11/14/24 11/14/24 22:59 06:59 14:59 Other: Voiding Method Bedside Commode Weight 63.503 kg 63.503 kg -GENERAL: The patient is alert and disoriented , not in any acute distress. Well developed, well nourished. HEENT: Pupils are round and equally reacting to light. EOMI. No scleral icterus. No conjunctival pallor. Normocephalic, atraumatic. No pharyngeal erythema. No thyromegaly. CARDIOVASCULAR: S1 and S2 present. No murmurs, rubs, or gallops. PULMONARY: Chest is clear to auscultation, no wheezing , no crackles. ABDOMEN: Soft, nontender, nondistended, normoactive bowel sounds. No palpable organomegaly. MUSCULOSKELETAL: No joint swelling or deformity. EXTREMITIES: No cyanosis, clubbing, or pedal edema. NEUROLOGICAL: Gross neurological examination did not reveal any focal deficits. SKIN: No rashes. no petechiae. Results CBC & Chem 7: 11/13/24 21:55 11/13/24 21:55 Labs: Abnormal Lab Results - Last 24 Hours (Table) 11/13/24 11/13/24 11/13/24 Range/Units 21:55 21:55 21:55 WBC 15.4 H (3.8-10.6) k/uL Neutrophils # 11.0 H (1.3-7.7) k/uL D-Dimer 1.16 H (<0.60) mg/L FEU Chloride 110 H (98-107) mmol/L Carbon Dioxide 20 L (22-30) mmol/L BUN 26 H (7-17) mg/dL Creatinine 1.26 H (0.52-1.04) mg/dL Glucose 105 H (74-99) mg/dL Total Protein 5.1 L (6.3-8.2) g/dL Albumin 2.9 L (3.5-5.0) g/dL Thrombosis Risk Factor Assmnt - Choose All That Apply Any of the Below Risk Factors Present?: No Other Risk Factors: Yes Each Risk Factor Represents 3 Points: Age 75 years or older Other congenital or acquired thrombophilia - If yes, enter type in comment: No Thrombosis Risk Factor Assessment Total Risk Factor Score: 3 Thrombosis Risk Factor Assessment Level: Moderate Risk Assessment and Plan Assessment: Esophageal thickening at the distal and with proximal dilatation, could be infectious versus inflammatory Substernal chest pain most likely secondary to above, mild and improving Recent COVID infection Dementia could be Alzheimer versus vascular Chronic kidney disease stage III with possible mild acute kidney injury Right side liver cyst 8.9 x 11.9 x 10 Plan: Continue with gentle hydration D5 half-normal saline at 50 Hold lisinopril and Norvasc Continue with aspirin Surgery team consult Swallow evaluation Bowel rest, keep n.p.o. Labs and medication were reviewed.. Continue same treatment. Continue with symptomatic treatment. Resume home medication. Monitor labs and vitals. DVT and GI prophylaxis. Further recommendations as per clinical course of the patient DVT prophylaxis: Subcutaneous heparin GI Prophylaxis: Ppi PT/OT: Pending Prognosis is guarded
[2024-11-14 14:49] VITALS: RESP 16
[2024-11-14] MEDS: MORPHINE SULFATE 4 MG/ML SYRINGE IVP PRN (17:02)
[2024-11-14] MEDS: ASPIRIN 81 MG PO SCH (21:03)
[2024-11-14] MEDS: HEPARIN SODIUM,PORCINE 5,000 UNIT/ML 1 ML VIAL SQ SCH (22:05)
--- NOTE | 2024-11-15 08:54 | P.GSCN ---
History of Present Illness Consult date: 11/15/24 Reason for Consult: GERD, esophageal thickening History of present illness: 89-year-old female presents to the hospital complaining of chest pain. Pain seems to improved since admission. Patient apparently was having some heartburn issues in the ER when she first presented. CAT scan of the chest was performed which did demonstrate esophageal thickening with a hiatal hernia. We were consulted for possible endoscopy. Patient also had COVID recently. No dysphagia. Appetite diminished. Review of Systems The patient denies any acute changes in vision or hearing, no dysphagia or odynophagia,no dysuria or hematuria, no headache, no runny nose, no rectal bleeding or melena, no unexplained weight loss Past Medical History Past Medical History: Dementia, Hyperlipidemia, Hypertension, Pneumonia History of Any Multi-Drug Resistant Organisms: None Reported Past Surgical History: Tubal Ligation Additional Past Surgical History / Comment(s): left retinal detachment Past Anesthesia/Blood Transfusion Reactions: No Reported Reaction Past Psychological History: No Psychological Hx Reported Smoking Status: Former smoker Past Alcohol Use History: None Reported Past Drug Use History: None Reported - Past Family History Mother Family Medical History: Unable to Obtain Medications and Allergies Home Medications Medication Instructions Recorded Confirmed Type Aspirin EC [Ecotrin Low Dose] 81 mg PO HS 07/09/22 11/14/24 History Lovastatin [Mevacor] 40 mg PO DAILY 07/09/22 11/14/24 History Memantine [Namenda] 10 mg PO DAILY 07/09/22 11/14/24 History lisinopriL [Zestril] 20 mg PO BID 07/09/22 11/14/24 History amLODIPine [Norvasc] 5 mg PO DAILY #30 tab 05/21/23 11/14/24 Rx Megestrol [Megace] 40 mg PO DAILY 11/14/24 11/14/24 History hydrALAZINE HCL [Apresoline] 25 mg PO TID PRN 11/14/24 11/14/24 History Allergies Allergy/AdvReac Type Severity Reaction Status Date / Time No Known Allergies Allergy Verified 11/14/24 11:16 Surgical - Exam Vital Signs Temp Pulse Resp BP Pulse Ox 97.7 F 84 18 123/71 98 11/13/24 21:31 11/13/24 21:31 11/13/24 21:31 11/13/24 21:31 11/13/24 21:31 Physical exam: General: Well-developed, well-nourished HEENT: Normocephalic, sclerae nonicteric Abdomen: Nontender, nondistended Extremities: No edema Neuro: Alert and oriented Results - Labs 11/13/24 21:55 11/13/24 21:55 Assessment and Plan (1) GERD (gastroesophageal reflux disease) Narrative/Plan: Will proceed with upper endoscopy at this time. Current Visit: Yes Status: Acute Code(s): K21.9 - GASTRO-ESOPHAGEAL REFLUX DISEASE WITHOUT ESOPHAGITIS SNOMED Code(s): 960945527
[2024-11-15] MEDS ORDERED: PHENYLEPHRINE-0.9% NACL SYG 1,000 MCG/10 ML SYRINGE ONE (09:02)
[2024-11-15] MEDS ORDERED: LIDOCAINE 1% INJ 10MG/ML (20 ML MDV) ONE (09:02)
[2024-11-15] MEDS: IV FLUID CONTINUATION 1,000 ML IV ONE (09:02)
[2024-11-15] MEDS ORDERED: PROPOFOL 10 MG/ML 20 ML VIAL IV ONE (09:02)
[2024-11-15 09:24] LABS: ALT 11 U/L (8-44); AST 18 U/L (13-35); Albumin 2.5 g/dL (3.8-4.9); Albumin/Globulin Ratio 1.47 Ratio (1.60-3.17); Alkaline Phosphatase 51 U/L (41-126); Blood Urea Nitrogen 16.9 mg/dL (9.0-27.0); Calcium 7.9 mg/dL (8.7-10.3); Carbon Dioxide 18.7 mmol/L (21.6-31.8); Chloride 113 mmol/L (96-109); Globulin 1.7 g/dL (1.6-3.3); Glucose 110 mg/dL (70-110); Magnesium 1.7 mg/dL (1.5-2.4); Phosphorus 2.6 mg/dL (2.4-5.1); Potassium 4.2 mmol/L (3.5-5.5); Sodium 141 mmol/L (135-145); Total Bilirubin 0.3 mg/dL (0.3-1.2); Total Protein 4.2 g/dL (6.2-8.2)
[2024-11-15 09:35] LABS: HCT 35.4 % (37.2-46.3); HGB 11.3 g/dL (12.0-15.0); MCH 30.1 pg (27.0-32.0); MCHC 31.9 g/dL (32.0-37.0); MCV 94.1 FL (80.0-97.0); Mean Platelet Volume 9.9 FL (9.5-12.2); NRBC Per 100 WBC 0 X 10*3/uL (0.00-0.01); Platelet Count 327 X 10*3/uL (140-440); RBC 3.76 X 10*6/uL (4.10-5.20); RDW 13.2 % (11.5-14.5); WBC 13.12 X 10*3/uL (4.50-10.00)
[2024-11-15 09:36] LABS: Basophils # (A) 0.04 X 10*3/uL (0.00-0.10); Basophils % (A) 0.3 %; Eosinophils % (A) 1.5 %; Lymphocytes # (A) 2.57 X 10*3/uL (0.90-5.00); Lymphocytes % (A) 19.6 %; Monocytes # (A) 0.86 X 10*3/uL (0.20-1.00); Monocytes % (A) 6.6 %; Neutrophils # (A) 9.18 X 10*3/uL (1.80-7.70); Neutrophils % (A) 69.9 %
--- NOTE | 2024-11-15 10:01 | P.PCN ---
Date of Procedure: 11/15/24 Procedure(s) Performed: Preoperative Dx: Esophageal thickening, GERD, chest pain Postoperative Dx: Esophagitis, hiatal hernia, gastritis Procedure: EGD with Bx Anesthesia: Sedation Endoscopist: Dr. Porter Specimens: Antrum, esophagus Endoscopic Procedure: The patient was on the endoscopy table in the left decubitus position. The Olympus gastroscope was inserted into the oropharynx and passed under direct visualization to the region of the third portion of the duodenum. From that point the scope was slowly withdrawn inspecting all surfaces carefully. There were no neoplastic inflammatory or polypoid lesions throughout the duodenum. The pylorus was widely patent. The stomach was carefully inspected. There was diffuse gastritis present. No ulcers were seen. Retroflexion revealed a small to moderate-sized hiatal hernia. The GE junction was present 3 cm above the diaphragm. The patient's distal 1/2-1/3 of the esophagus demonstrated circumferential significant inflammatory changes with a fibropurulent exudate covering the majority of this. A few areas appeared slightly nodular and there is some degree of suspicion for neoplasm here. Multiple biopsies took place. No stricture was present. Proximal esophagus appeared normal. The patient was then taken to the recovery room in stable condition per anesthesia guidelines. Recommendations: Begin clear liquids. Continue Protonix. When discharged home on proton pump inhibitors twice daily. Tentatively advised repeat EGD 3 months to confirm resolution of the significant inflammatory changes seen. Will contact patient or daughter with biopsy results.
[2024-11-15] MEDS: MEMANTINE 10 MG TAB PO SCH (12:11)
[2024-11-15] MEDS: PANTOPRAZOLE 40 MG/10 ML VIAL IV SCH (22:06)
[2024-11-16] MEDS ORDERED: ONDANSETRON 4 MG/2 ML VIAL IVP PRN (04:50)
[2024-11-16] MEDS ORDERED: SENNOSIDES 8.6 MG TAB PO PRN (04:54)
--- NOTE | 2024-11-16 04:56 | P.PN ---
Subjective Progress Note Date: 11/15/24 This is a pleasant 89 years old female with past medical history of multiple medical problems She was recently diagnosed with COVID infection She presents because of chest pain, described as substernal chest pain I met with the patient with the son at bedside, patient looks poor historian. She was not sure about her presentation. She refers her chest pain but looks like it is okay now not bothering her much either no chest pain or very mild chest pain. She denies dyspnea. No coughing She has chronic nasal obstruction percent that does not require treatment when offered No reports of abdominal pain vomiting or diarrhea. No dysuria or urgency. Per son she voided once No new headache dizziness weakness or numbness At baseline she walks little bit in her room Patient is hemodynamically stable and afebrile Labs showing mild leukocytosis and creatinine 1.6 which is close to baseline. Rest of CBC, BMP, LFT, INR and troponin are negative D-dimer is 1.1 CTA of the chest is negative for PE but there is distal esophageal thickening could be inflammatory versus infectious. Associated with right liver cyst proBNP is 382 11/15/2024 Patient seen and evaluated with general surgery. Patient is status post EGD showing hiatal hernia, esophagitis, gastritis and will continue on PPI twice cynthia ly. Patient has been started on clear liquids and will slowly advance as tolerated. Recommend PT/OT therapy evaluation and discussing possible ECF for continued strength and mobility prior to [facility] return. Patient is afebrile and denies chest pain or shortness of breath. Will follow-up on repeat labs. Replace electrolytes per protocol. Review of systems: Constitutional: No reports of fatigue, fever, or chills Cardiovascular: No reports of chest pain or palpitations Respiratory: No reports of shortness of breath or cough GI: No reports of nausea, vomiting, or diarrhea, not much of an appetite and poor oral intake : No reports of dysuria or retention Neurovascular: reports of generalized weakness All medications have been reviewed Physical exam: GENERAL: The patient is alert and oriented x 1-2, baseline, mildly anxious. Well developed, elderly appearing, ill-appearing HEENT: Pupils are round and equally reacting to light. EOMI. No scleral icterus. No conjunctival pallor. Normocephalic, atraumatic. No pharyngeal erythema. No thyromegaly. CARDIOVASCULAR: S1 and S2 present. No murmurs, rubs, or gallops. PULMONARY: Diminished breath sounds bilaterally otherwise chest is clear to auscultation, no wheezing , no crackles. ABDOMEN: Soft, nontender, nondistended, normoactive bowel sounds. No palpable organomegaly. MUSCULOSKELETAL: No joint swelling or deformity. EXTREMITIES: No cyanosis, clubbing, or pedal edema. NEUROLOGICAL: Gross neurological examination did not reveal any focal deficits. Diffusely weak SKIN: No rashes. no petechiae. Assessment: Esophageal thickening at the distal and with proximal dilatation, could be infectious versus inflammatory, status post EGD showing esophagitis, gastritis, hiatal hernia Substernal chest pain most likely secondary to above, mild and improving Recent COVID infection Dementia could be Alzheimer versus vascular Chronic kidney disease stage III with possible mild acute kidney injury Right side liver cyst 8.9 x 11.9 x 10 GI prophylaxis DVT prophylaxis mechanical code Plan: Continue with gentle hydration and has been seen and evaluated underwent EGD as mentioned above is being started on clear liquids and slowly advancing Medications reviewed and resumed as appropriate Follow-up on repeat labs and replace electrolytes per protocol Continue with antinausea medications Recommend PT/OT therapy evaluation Social work following discussing possibly returning to [facility] versus [facility] for continued strength and mobility Possible discharge planning in the next 24 to 48 hours The impression and plan of care has been dictated by Laura Jones, Nurse Practitioner as directed. Dr. Rashel MD I have performed a history and examination and MDM of this patient, discussed the same with the dictator, and agree with the dictator's assessment and plan as written ,documented as a scribe. Based on total visit time, I have performed more than 50% of the visit. Objective - Vital Signs Vital signs: Vital Signs Temp 98.3 F 11/15/24 09:49 Pulse 68 11/15/24 09:49 Resp 16 11/15/24 09:49 BP 109/70 11/15/24 09:49 Pulse Ox 97 11/15/24 09:49 FiO2 Intake & Output 11/14/24 11/15/24 11/15/24 18:59 06:59 18:59 Intake Total 50 Output Total 100 Balance -100 50 Intake: IV 50 Output: Urine 100 Other: Voiding Method Toilet Toilet # Voids 2 - Labs CBC & Chem 7: 11/15/24 05:32 11/15/24 05:32 Labs: Abnormal Lab Results - Last 24 Hours (Table) 11/15/24 11/15/24 Range/Units 05:32 05:32 WBC 13.12 H (4.50-10.00) X 10*3/uL RBC 3.76 L (4.10-5.20) X 10*6/uL Hgb 11.3 L (12.0-15.0) g/dL Hct 35.4 L (37.2-46.3) % MCHC 31.9 L (32.0-37.0) g/dL Immature Gran # 0.27 H (0.00-0.04) X 10*3/uL Neutrophils # 9.18 H (1.80-7.70) X 10*3/uL Chloride 113 H (96-109) mmol/L Carbon Dioxide 18.7 L (21.6-31.8) mmol/L Est GFR (CKD-EPI) 54 L (>=60) Calcium 7.9 L (8.7-10.3) mg/dL Total Protein 4.2 L (6.2-8.2) g/dL Albumin 2.5 L (3.8-4.9) g/dL Albumin/Globulin Ratio 1.47 L (1.60-3.17) Ratio
[2024-11-16 06:30] LABS: ALT 11 U/L (4-34); AST 20 U/L (14-36); African American GFR (CKD) 49 (>60 ml/min/1.73 sqM); Albumin 2.1 g/dL (3.5-5.0); Alkaline Phosphatase 49 U/L (38-126); Anion Gap 3 mmol/L; Blood Urea Nitrogen 16 mg/dL (7-17); Calcium 8.4 mg/dL (8.4-10.2); Carbon Dioxide 21 mmol/L (22-30); Chloride 112 mmol/L (98-107); Globulin 2.1 g/dL; Glucose 85 mg/dL (74-99); Magnesium 1.8 mg/dL (1.6-2.3); Non-African American GFR(CKD) 42 (>60 ml/min/1.73 sqM); Sodium 136 mmol/L (137-145); Total Bilirubin 0.4 mg/dL (0.2-1.3); Total Protein 4.2 g/dL (6.3-8.2)
[2024-11-16 08:47] VITALS: TEMP 98.2
[2024-11-16] MEDS: SENNOSIDES 8.6 MG TAB PO SCH (11:15)
[2024-11-16 12:06] LABS: Basophils % (A) 0 %; Eosinophils # (A) 0.1 k/uL (0-0.7); Eosinophils % (A) 2 %; HCT 35.2 % (34.0-46.0); HGB 11.6 gm/dL (11.4-16.0); Lymphocytes # (A) 2.1 k/uL (1.0-4.8); Lymphocytes % (A) 22 %; MCH 30.8 pg (25.0-35.0); MCV 93.3 fL (80.0-100.0); Mean Platelet Volume 8.6; Monocytes # (A) 0.6 k/uL (0-1.0); Monocytes % (A) 6 %; Neutrophils # (A) 6.7 k/uL (1.3-7.7); Neutrophils % (A) 70 %; Platelet Count 333 k/uL (150-450); RBC 3.77 m/uL (3.80-5.40); RDW 13.5 % (11.5-15.5); WBC 9.5 k/uL (3.8-10.6)
--- NOTE | 2024-11-16 14:59 | P.DS ---
Providers Date of admission: 11/14/24 01:43 Expected date of discharge: 11/16/24 Attending physician: Camilla Rodriguez Consults: 11/14/24 14:37 Consult Physician Routine Consulting Provider: Aaron Porter Reason/Comments: esophageal thickening Do you want consulting provider notified?: Yes Primary care physician: Nadir Jason [facility] Course: Final diagnosis Esophageal thickening at the distal and with proximal dilatation, could be infectious versus inflammatory, status post EGD showing esophagitis, gastritis, hiatal hernia Substernal chest pain most likely secondary to above, mild and improving Recent COVID infection Dementia could be Alzheimer versus vascular Chronic kidney disease stage III with possible mild acute kidney injury Right side liver cyst 8.9 x 11.9 x 10 GI prophylaxis DVT prophylaxis Full code Discharge disposition Patient is being discharged in a stable condition with guarded prognosis to [facility]. Patient will follow-up with Dr. Gomez in the outpatient setting upon discharge. Patient is to continue with current medications and outpatient follow-up with general surgery for biopsy results as scheduled. Total time taken is greater than 35 minutes. Hospital course This is a 89-year-old female who was recently admitted with chest pain possibly secondary to esophageal thickening and being closely monitored with general surgery following. Patient is status post EGD showing esophagitis, gastritis, hiatal hernia and recently diagnosed with COVID-19 infection on November 11. Patient does have dementia and progressive weakness normally lives at an [facility] although was evaluated by physical therapy recommending rehab and patient's family is agreeable. Patient has been cleared for discharge by general surgery recommend to continue with PPI twice daily and either Dr. Porter will call daughter and son with results or patient will follow-up in the outpatient setting with him. Please refer to other consultation notes for further HPI. Currently no reports of chest pain, shortness of breath, or palpitations. Patient is afebrile. No reports of nausea or vomiting and patient is tolerating diet. Patient will be going to [facility] today. Physical exam: Gen: This is a 89-year-old female who is awake, alert and oriented x 1-2, baseline, well-developed, elderly appearing, ill-appearing HEENT: Head is atraumatic, normocephalic. Pupils equal, round. Sclerae is anicteric. NECK: Supple. No JVD. No lymphadenopathy. No thyromegaly. LUNGS: Diminished breath sounds bilaterally otherwise clear to auscultation. No wheezes or rhonchi. No intercostal retractions. HEART: S1, S2 are muffled ABDOMEN: Soft. Thin bowel sounds are present. No masses. No tenderness. EXTREMITIES: No pedal edema. No calf tenderness. NEUROLOGICAL: Patient is awake, alert and oriented x 12, baseline. Cranial nerves 2 through 12 are grossly intact. Diffusely weak Please refer to medication reconciliation sheet for a list of medications. The impression and plan of care has been dictated by Laura Jones, Nurse Practitioner as directed. Dr. Arturo MD I have performed a history and examination and MDM of this patient, discussed the same with the dictator, and agree with the dictator's assessment and plan as written ,documented as a scribe. Based on total visit time, I have performed more than 50% of the visit. Patient Condition at Discharge: Fair Plan - Discharge Summary New Discharge Prescriptions: New Heparin Sodium,Porcine (1 ml) [Heparin Sodium] 5,000 unit SQ Q12HR each Acetaminophen Tab [Tylenol] 650 mg PO Q6HR PRN tab PRN Reason: Mild Pain Or Fever > 100.5 Pantoprazole [Protonix] 40 mg PO BID #60 tab Sennosides [Senokot] 8.6 mg PO DAILY tab Continue Aspirin EC [Ecotrin Low Dose] 81 mg PO HS Megestrol [Megace] 40 mg PO DAILY Lovastatin [Mevacor] 40 mg PO DAILY Memantine [Namenda] 10 mg PO DAILY Discontinued lisinopriL [Zestril] 20 mg PO BID amLODIPine [Norvasc] 5 mg PO DAILY #30 tab hydrALAZINE HCL [Apresoline] 25 mg PO TID PRN PRN Reason: HIGH BP Discharge Medication List Aspirin EC [Ecotrin Low Dose] 81 mg PO HS 07/09/22 [History] Lovastatin [Mevacor] 40 mg PO DAILY 07/09/22 [History] Memantine [Namenda] 10 mg PO DAILY 07/09/22 [History] Megestrol [Megace] 40 mg PO DAILY 11/14/24 [History] Acetaminophen Tab [Tylenol] 650 mg PO Q6HR PRN tab 11/16/24 [Rx] Heparin Sodium,Porcine (1 ml) [Heparin Sodium] 5,000 unit SQ Q12HR each 11/16/24 [Rx] Pantoprazole [Protonix] 40 mg PO BID #60 tab 11/16/24 [Rx] Sennosides [Senokot] 8.6 mg PO DAILY tab 11/16/24 [Rx] Follow up Appointment(s)/Referral(s): Nadir Gomez MD [Primary Care Provider] - 1-2 days Discharge Disposition: TRANSFER TO SNF/ECF
--- NOTE | 2024-11-16 14:59 | P.PN ---
Subjective Progress Note Date: 11/16/24 SURGICAL PROGRESS NOTE CHIEF COMPLAINT: Esophageal thickening HISTORY OF PRESENT ILLNESS: Patient status post EGD with results reporting esophagitis, hiatal hernia and gastritis. Patient tolerated clear liquid diet. She is complaining of constipation. Denies any nausea or vomiting. Patient appears more awake and alert today. Afebrile. WBC 9.5 Hgb 11.6 PHYSICAL EXAM: VITAL SIGNS: Reviewed. GENERAL: Well-developed in no acute distress. ABDOMEN: Soft. Nondistended. Nontender. ASSESSMENT: 1. Esophageal thickening on CT scan. Status post EGD revealing esophagitis, hiatal hernia and gastritis PLAN: -Advance diet to regular -Continue Protonix 40 mg twice daily at discharge -Recommend repeat EGD in 3 months [employer]ician Network [employer] Manager note has been reviewed by physician. Signing provider agrees with the documented findings, assessment, and plan of care. Objective - Vital Signs Vital signs: Vital Signs Temp 98.2 F 11/16/24 07:00 Pulse 63 11/16/24 07:00 Resp 16 11/16/24 07:00 BP 115/76 11/16/24 07:00 Pulse Ox 98 11/16/24 07:00 FiO2 Intake & Output 11/15/24 11/16/24 11/16/24 18:59 06:59 18:59 Intake Total 50 Balance 50 Intake: IV 50 Other: Voiding Method Toilet # Voids 2 1 - Labs CBC & Chem 7: 11/16/24 11:35 11/16/24 05:34 Labs: Abnormal Lab Results - Last 24 Hours (Table) 11/16/24 11/16/24 Range/Units 05:34 11:35 RBC 3.77 L (3.80-5.40) m/uL Sodium 136 L (137-145) mmol/L Chloride 112 H (98-107) mmol/L Carbon Dioxide 21 L (22-30) mmol/L Creatinine 1.15 H (0.52-1.04) mg/dL Total Protein 4.2 L (6.3-8.2) g/dL Albumin 2.1 L (3.5-5.0) g/dL
[2024-11-16 15:59] VITALS: BP 105/70; PULSE 72
== END 2024-11-16 16:05 ==
LOC: EC 21:30 → 6NMEDSUR 11-14 01:43
PROVIDERS: ADMIT Hospitalist; ATTEND Hospitalist
DX: R07.2 Precordial pain (principal); K22.10 Ulcer of esophagus without bleeding; K22.89 Other specified disease of esophagus; E86.0 Dehydration; U07.1 COVID-19; I12.9 Hypertensive chronic kidney disease with stage 1 through stage 4 chronic kidney disease, or unspecified chronic kidney disease; N18.30 Chronic kidney disease, stage 3 unspecified; K21.00 Gastro-esophageal reflux disease with esophagitis, without bleeding; K44.9 Diaphragmatic hernia without obstruction or gangrene; K29.70 Gastritis, unspecified, without bleeding; F03.90 Unspecified dementia, unspecified severity, without behavioral disturbance, psychotic disturbance, mood disturbance, and anxiety; K59.00 Constipation, unspecified; D72.829 Elevated white blood cell count, unspecified; K76.89 Other specified diseases of liver; Z79.01 Long term (current) use of anticoagulants; Z79.82 Long term (current) use of aspirin; Z79.899 Other long term (current) drug therapy; Z87.891 Personal history of nicotine dependence
CPT/HCPCS: 96376 ×3; 96361 ×2; 96372 ×3; 96375; 96374; 99285; 36415; 94760; 93005; 97161; 97165; 92610; 85379; 88305; 83880; 80053 ×3; 83690; 83735 ×3; 84100; 84484; 85025 ×3; 85610; 85730; 88312; 71046; 71275; 43239; G0378 ×3; J2270 ×3; J1644 ×3; J2003; J1885; J2704; Q9967; J2371; J2470 ×2